=== PATIENT | female | born 1995 | race Caucasian/White ===

== ENCOUNTER → 2017-10-06 16:57 | Outpatient (CLI) | payer OTHER, SELFPAY ==
[2017-10-06 19:17] LABS: Chlamydia Trachomatis by PCR POSITIVE (Negative); Neisserai gonorrhoeae by PCR Negative (Negative); Probe Check PASS
[2017-10-11 09:20] LABS: HPV Reflexed? NOT INDICATED
== END ==
PROVIDERS: Visit Provider Nurse Practitioner Women's Health
DX: Z34.91 Encounter for supervision of normal pregnancy, unspecified, first trimester (principal); Z12.4 Encounter for screening for malignant neoplasm of cervix
CPT/HCPCS: 87086; 87491; 87591; 88175; G0145

== ENCOUNTER → 2017-11-02 14:20 | Outpatient (CLI) | payer OTHER, SELFPAY ==
--- NOTE | 2017-11-02 14:20 | DT_ITS ---
This patient was seen during an EMR downtime October 31, 2017 - November 07, 2017. This patient may have a combination of paper and electronic documentation or all paper documentation. All documentation is viewable within the e-chart portion of [facility] for each patient visit.
[2017-11-04 13:56] LABS: Chlamydia Trachomatis by PCR Negative (Negative); Neisserai gonorrhoeae by PCR Negative (Negative); Probe Check PASS; Sample Adequacy Control PASS; Specimen Processing Control PASS
[2017-11-06 13:34] LABS: Rapid Plasmin Reagin (RPR) NONREACTIVE (NONREACTIVE)
[2017-11-07 10:49] LABS: Absolute Lymphocyte Count 1.85 X10^3/ul (0.83-4.51); Absolute Neutrophil Count 6.3 X10^3/uL (2.0-7.7); Basophil% 0.3 % (0-1); Eosinophils% 1.3 % (0-5); Hematocrit 35.9 % (37-47); Hemoglobin 12.4 g/dl (12.0-15.0); Lymphocyte # 1.85 X10^3/ul (4.0); Lymphocyte % 20.7 % (19-41); Mean Corp Hgb Conc 34.5 g/gl (32-36); Mean Corpuscular Volume 86.9 fL (81-99); Mean Platelet Vol. 11.3 fl (6.2-12.0); Monocyte% 6.9 % (0-10); Neutrophil % 70.7 % (47-70); POSITIVE COUNT NO; POSITIVE DIFFERENTIAL NO; POSITIVE MORPHOLOGY NO; Platelet Count 251 K/mm3 (150-450); RBC Distribution Width CV 12.2 % (11.6-14.6); Red Blood Count 4.13 M/mm3 (4.2-5.4); White Blood Count 8.9 K/mm3 (4.4-11.0)
[2017-11-07 12:15] LABS: HIV - WCH Nonreactive (Nonreactive); Rubella IgG > 500.0 IU/mL
[2017-11-11 07:09] LABS: HEPATITIS B SURFACE AG Negative (Negative)
== END ==
PROVIDERS: Nurse Practitioner Women's Health; Visit Provider Obstetrics & Gynecology
DX: Z34.91 Encounter for supervision of normal pregnancy, unspecified, first trimester (principal)
CPT/HCPCS: 85025; 86592; 86703; 86762; 86900; 87340; 87491; 87591

== ENCOUNTER → 2017-11-29 14:00 | Outpatient (CLI) | payer OTHER, SELFPAY | LOC: LAB 14:02 | PROVIDERS: Visit Provider Obstetrics & Gynecology | DX: Z34.90 Encounter for supervision of normal pregnancy, unspecified, unspecified trimester (principal) | CPT/HCPCS: 36415; 86850 ==

== ENCOUNTER → 2017-12-28 12:12 | Outpatient (CLI) | payer OTHER, SELFPAY ==
--- NOTE | 2017-12-28 12:15 | US_ITS ---
STUDY: SECOND AND THIRD TRIMESTER OBSTETRICAL ULTRASOUND REASON FOR EXAM: Female, 22 years old. Anatomy LMP: TECHNIQUE: Transabdominal PRIOR ULTRASOUND: None. FINDINGS: There is a single intrauterine fetus. The fetus is in a cephalic presentation. There is demonstrated cardiac activity with a heart rate of 136 bpm. There is a normal amniotic fluid volume. The largest amniotic fluid pocket measures 4.7 cm. The placenta is posterior in location and is not low lying. There are Grade 0 placental changes. The cervix measures 4.5 cm in length. The bilateral adnexal regions are normal. BIOMETRY: BPD: 45mm: 19 weeks, 5 days HC: 179mm: 20 weeks, 3 days AC: 165mm: 21 weeks, 4 days FL: 35mm: 21 weeks, 1 days CI: 71 FL/BPD: 78 FL/HC: FL/AC: 21 HC/AC: 1.08 age by current US: 20 weeks, 5 days. CONNIE by current US: .. Estimated weight: 402 grams, +/- 14 grams, 88 %. Age by LMP: 20 weeks, 2 days. CONNIE by LMP: ..18. ANATOMY: Gender: Female Cranium: Normal lateral ventricles. Normal choroid plexus. Normal cerebellum. Normal cisterna magna. Normal face, nose and lips. Chest: Normal 4-chamber heart. Abdomen/Pelvis: Normal diaphragm. Normal stomach. Normal abdominal wall. Normal cord insertion. Normal 3 vessel cord. Normal right kidney. Minimal dilation of the left renal pelvis. Normal bladder. Spine: Normal cervical spine. Normal thoracic spine. Normal lumbar spine. Normal sacrum. Extremities: Normal bilateral upper extremities. Normal bilateral lower extremities. US/OB Anatomy Scan IMPRESSION: There is a single live intrauterine with a heart rate of 136 bpm. age by current US: 20 weeks, 5 days. CONNIE by current US: 05.12.18. Unremarkable anatomic survey. Electronically Signed: Nikita Mcallister MD at 18:13 EDT , Service support ,
== END ==
PROVIDERS: Visit Provider Nurse Practitioner Women's Health
DX: Z34.91 Encounter for supervision of normal pregnancy, unspecified, first trimester (principal)
CPT/HCPCS: 76805

== ENCOUNTER → 2018-02-21 09:00 | Outpatient (CLI) | payer OTHER, SELFPAY ==
[2018-02-21 10:54] LABS: Absolute Lymphocyte Count 1.43 X10^3/ul (0.83-4.51); Absolute Neutrophil Count 5.4 X10^3/uL (2.0-7.7); Basophil# 0.02 X10^3/uL; Basophil% 0.3 % (0-1); Eosinophil# 0.14 X10^3/uL; Eosinophils% 1.8 % (0-5); Hematocrit 29.8 % (37-47); Hemoglobin 10.1 g/dl (12.0-15.0); Lymphocyte # 1.43 X10^3/ul (4.0); Lymphocyte % 18.9 % (19-41); Mean Corp Hgb Conc 33.9 g/gl (32-36); Mean Corpuscular Hgb 30.9 pg (27.0-32.0); Mean Corpuscular Volume 91.1 fL (81-99); Mean Platelet Vol. 10.9 fl (6.2-12.0); Monocyte# 0.54 X10^3/uL; Monocyte% 7.1 % (0-10); Neutrophil # 5.42 X10^3/uL (2.7-7.7); Neutrophil % 71.5 % (47-70); Platelet Count 186 K/mm3 (150-450); RBC Distribution Width CV 13.4 % (11.6-14.6); RBC Distribution Width SD 44.3 fl (35.1-43.9); Red Blood Count 3.27 M/mm3 (4.2-5.4); White Blood Count 7.6 K/mm3 (4.4-11.0)
[2018-02-21 10:58] LABS: POSITIVE COUNT NO; POSITIVE DIFFERENTIAL NO; POSITIVE MORPHOLOGY NO
[2018-02-21 11:19] LABS: Glucose Challenge Gest 1H 50g 121 mg/dL (70-140)
== END ==
LOC: LAB 09:03
PROVIDERS: Referring Provider Nurse Practitioner Women's Health; Visit Provider Nurse Practitioner Women's Health
DX: Z34.91 Encounter for supervision of normal pregnancy, unspecified, first trimester (principal)
CPT/HCPCS: 36415; 82950; 85025

== ENCOUNTER → 2018-04-18 08:53 | Outpatient (CLI) | payer OTHER, SELFPAY ==
[2018-04-18 08:21] VITALS: BMI 28.5
[2018-04-18 09:33] LABS: Absolute Neutrophil Count 5.1 X10^3/uL (2.0-7.7); Basophil# 0.02 X10^3/uL; Basophil% 0.3 % (0-1); Eosinophil# 0.07 X10^3/uL; Eosinophils% 0.9 % (0-5); Hematocrit 31.7 % (37-47); Hemoglobin 10.6 g/dl (12.0-15.0); Lymphocyte % 20.3 % (19-41); Mean Corp Hgb Conc 33.4 g/gl (32-36); Mean Corpuscular Hgb 30.7 pg (27.0-32.0); Mean Corpuscular Volume 91.9 fL (81-99); Mean Platelet Vol. 10.8 fl (6.2-12.0); Monocyte# 1.08 X10^3/uL; Monocyte% 13.7 % (0-10); Neutrophil # 5.07 X10^3/uL (2.7-7.7); Neutrophil % 64.4 % (47-70); Platelet Count 159 K/mm3 (150-450); RBC Distribution Width CV 13.6 % (11.6-14.6); RBC Distribution Width SD 44.8 fl (35.1-43.9); Red Blood Count 3.45 M/mm3 (4.2-5.4); White Blood Count 7.9 K/mm3 (4.4-11.0)
[2018-04-18 09:38] LABS: POSITIVE COUNT NO; POSITIVE DIFFERENTIAL NO; POSITIVE MORPHOLOGY NO
[2018-04-19 02:02] LABS: Chlamydia Trachomatis by PCR Negative (Negative); Neisserai gonorrhoeae by PCR Negative (Negative); Probe Check PASS; Sample Adequacy Control PASS; Specimen Processing Control PASS
== END ==
LOC: PAVLAB 08:55
PROVIDERS: Visit Provider Nurse Practitioner Women's Health
DX: O99.012 Anemia complicating pregnancy, second trimester (principal); Z3A.00 Weeks of gestation of pregnancy not specified
CPT/HCPCS: 36415; 85025; 87081; 87491; 87591

== ENCOUNTER → 2018-04-26 16:39 | Outpatient (CLI) | payer OTHER, SELFPAY ==
[2018-04-26 12:17] VITALS: BMI 28.8
[2018-04-26 20:28] LABS: Chlamydia Trachomatis by PCR Negative (Negative); Neisserai gonorrhoeae by PCR Negative (Negative); Probe Check PASS; Sample Adequacy Control PASS; Specimen Processing Control PASS
--- OUTSIDE RECORDS SUMMARY | 2018-06-22 02:42 | XMS RPT_ITS ---
:1995 Author Organization OHIP Support Name Relationship Address Phone [facility] Unavailable [address] + [address], [place] Unavailable [address] + [address] [place] [id number] [facility] Unavailable [address] + [address], [place] Unavailable [address] + [address] [place] [address] [facility] Unavailable [address] + [address], [place] Unavailable [address] + [address] [place] [address] [facility] Unavailable [address] + [address], [place] Unavailable [address] + [address] [place] [address] [facility] Unavailable [address] + [address] [place] Unavailable [address] + [address] [place] [address] [facility] Unavailable [address] + [address], [place] Unavailable [address] + [address] [place] [address] [facility] Unavailable [address] + [address], [place] Unavailable [address] + [address] [place] [address] [facility] Unavailable [address] + [facility] [address] [place], [place] Unavailable [address] + [address] [place] [address] [facility] Unavailable [address] + [place] [address] [place], [place] Unavailable [address] + [address] [place] [address] [facility] Unavailable [address] + [place] [id number] [place], [place] Unavailable [address] + [address] [place] [address] [facility] Unavailable [address] + [address], [place] Unavailable [address] + [address] [place] [address] [facility] Unavailable [address] + [address], [place] Unavailable [address] + [address] [place] [address] [facility] Unavailable [address] + [address], [place] Unavailable [address] + [address] [place] [address] [facility] Unavailable [address] + [address], [place] Unavailable [address] + [place] [address] [facility] Unavailable [address] + [address], [place] Unavailable [address] + [place] [address] [facility] Unavailable [address] + [address], [place] Unavailable [address] + [place] [address] [facility] Unavailable [address] + [address], [place] Unavailable [address] + [place] [address] [facility] Unavailable [address] + [place] [place], [place] Unavailable [address] + [place] [address] [facility] Unavailable [address] + [place] [place], [place] Unavailable [address] + [place] [address] [facility] Unavailable [address] + [place] [place], [place] Unavailable [address] + [place] [address] [facility] Unavailable [address] + [address], [place] Unavailable [address] + [place] [address] [facility] Unavailable [address] + [address], [place] Unavailable Unavailable + [place] [address] [facility] Unavailable X + [address], [place] Unavailable . + [place] [address] Care Team Providers Name Role Phone Indiana Buck Attending Unavailable Primay Care Physicia, No Referring Unavailable MarcanthonyIndiana Attending Unavailable Primay Care Physicia, No Referring Unavailable Erum, Elizabet Attending Unavailable Primay Care Physicia, No Referring Unavailable Primay Care Physicia, No Primary Care Unavailable Erum, Elizabet Attending Unavailable Primay Care Physicia, No Primary Care Unavailable [place], Elizabet Referring Unavailable Indiana Buck Attending Unavailable Indiana Buck Referring Unavailable Primay Care Physicia, No Primary Care Unavailable Indiana Buck Admitting Unavailable MarcanthIndiana bobby Admitting Unavailable AbdonanthIndiana bobby Attending Unavailable Indiana Buck Referring Unavailable Primay Care Physicia, No Primary Care Unavailable Indiana Buck Consulting Unavailable Indiana Buck Attending Unavailable Primay Care Physicia, No Primary Care Unavailable [place], Elizabet Attending Unavailable Primay Care Physicia, No Referring Unavailable Primay Care Physicia, No Primary Care Unavailable Marcanthony, [place] Attending Unavailable Primay Care Physicia, No Referring Unavailable Primay Care Physicia, No Primary Care Unavailable Marcanthony, [place] Attending Unavailable Marcanthony, [place] Referring Unavailable Primay Care Physicia, No Primary Care Unavailable Erum, Elizabet Attending Unavailable Primay Care Physicia, No Referring Unavailable Primay Care Physicia, No Primary Care Unavailable Erum, Elizabet Attending Unavailable Primay Care Physicia, No Primary Care Unavailable Marcanthony, [place] Attending Unavailable Primay Care Physicia, No Referring Unavailable Primay Care Physicia, No Primary Care Unavailable Erum, Elizabet Attending Unavailable Primay Care Physicia, No Referring Unavailable [place], Elizabet Attending Unavailable [place], Elizabet Referring Unavailable Primay Care Physicia, No Primary Care Unavailable Marcanthony, [place] Attending Unavailable Primay Care Physicia, No Referring Unavailable [place], Elizabet Attending Unavailable Primay Care Physicia, No Referring Unavailable Marcanthony, [place] Attending Unavailable Primay Care Physicia, No Referring Unavailable [place], Elizabet Attending Unavailable Primay Care Physicia, No Referring Unavailable [place], Elizabet Attending Unavailable Primay Care Physicia, No Primary Care Unavailable Marcanthony, [place] Attending Unavailable Primay Care Physicia, No Referring Unavailable Marcanthony, [place] Attending Unavailable Primay Care Physicia, No Primary Care Unavailable Marcanthony, [place] Referring Unavailable Marcanthony, [place] Attending Unavailable Primay Care Physicia, No Referring Unavailable PROBLEMS PROBLEMS DATE TYPE CONDITION / CODE ATTENDING STATUS SOURCE 05/15/2018 Unknown O98.813 - Other Marcanthony, Active [place] maternal [facility] infectious and Hospital parasitic diseases Repository complicating , third trimester / O98.813(ICD-10) 05/15/2018 Unknown Z34.80 - Encounter Marcanthony, Active [place] for supervision of [facility] normal Hospital , Repository unspecified trimester / Z34.80(ICD-10) 05/15/2018 Unknown Z3A.40 - 40 weeks Marcanthony, Active [place] gestation of [facility] / Hospital Z3A.40(ICD-10) Repository 05/02/2018 Unknown Z34.81 - Encounter Marcanthony, Active [place] for supervision of [facility] normal Hospital , first Repository trimester / Z34.81(ICD-10) 05/02/2018 Unknown Z3A.38 - 38 weeks Marcanthony, Active [place] gestation of [facility] / Hospital Z3A.38(ICD-10) Repository 04/18/2018 Unknown Z34.90 - Encounter [place], Elizabet Active [place] for supervision of [facility] normal , Hospital unspecified, Repository unspecified trimester / Z34.90(ICD-10) 04/18/2018 Unknown O99.012 - Anemia [place], Elizabet Active [place] complicating Community , second Hospital trimester / Repository O99.012(ICD-10) 04/18/2018 Unknown Z3A.36 - 36 weeks Erum, Elizabet Active [place] gestation of [facility] / Hospital Z3A.36(ICD-10) Repository 04/04/2018 Unknown A74.9 - Chlamydial Marcanthony, Active [place] infection, [facility] unspecified / Hospital A74.9(ICD-10) Repository 04/04/2018 Unknown Z3A.34 - 34 weeks Marcanthony, Active [place] gestation of [facility] / Hospital Z3A.34(ICD-10) Repository 03/21/2018 Unknown Z23 - Encounter [place], Elizabet Active [place] for immunization / [facility] Z23(ICD-10) Hospital Repository 03/07/2018 Unknown O98.812 - Other Marcanthony, Active [place] maternal [facility] infectious and Hospital parasitic diseases Repository complicating , second trimester / O98.812(ICD-10) 03/07/2018 Unknown Z3A.30 - 30 weeks Marcanthony, Active [place] gestation of [facility] / Hospital Z3A.30(ICD-10) Repository 02/21/2018 Unknown Z34.91 - Encounter [place], Elizabet Active [place] for supervision of [facility] normal , Hospital unspecified, first Repository trimester / Z34.91(ICD-10) 02/21/2018 Unknown Z3A.28 - 28 weeks [place], Elizabet Active [place] gestation of [facility] / Hospital Z3A.28(ICD-10) Repository 02/21/2018 Unknown O26.86 - Pruritic Erum, Elizabet Active [place] urticarial papules Community and plaques of Hospital (PUPPP) Repository / O26.86(ICD-10) 12/26/2017 Unknown Z3A.20 - 20 weeks Erum, Elizabet Active [place] gestation of [facility] / Hospital Z3A.20(ICD-10) Repository 10/07/2017 Unknown Z12.4 - Encounter Elizabet Danielson Active [place] for screening for [facility] malignant neoplasm Hospital of cervix / Repository Z12.4(ICD-10) PROCEDURES PROCEDURES No Procedure Records FoundRESULTS RESULTS OPERATIVE REPORT Observed: 05/16/2018 Status: F Source: [place] 7:43 PM [facility] REPOSITORY [facility] Medical Records Department [address] [facility] [place] [address] Operative Report 05/16/181940 MR#: [id number] Acct: [id number] Name: KATHI MCFARLAND Rep #: [id number] : 1995 23 From: Indiana Buck MD PCP: Care Physician, No Primary Status: ADM IN Location: [id number] - Problem List (1) Active labor Status: Acute (2) Anemia affecting Status: Acute Qualifiers: (3) Supervision of normal , antepartum Status: Acute Qualifiers: Comment: PRR G 06/30 CONNIE: 05/15/18 girl PC; Antionette. Spouse Colin. (4) Status: Acute Qualifiers: Comment: declined genetic, carrier, and ntd screening. anatomy scan normal. Vaginal Delivery Maternal Presentation: Active Labor Amniotic Membrane Rupture Type: Spontaneous at home Amniotic Fluid Description: Clear Final CONNIE: 05/15/18 Gestational age: 40 Weeks and 1 Days Date of Procedure: 05/16/18 Pre-Operative Diagnosis: ial Post-Operative Diagnosis: same Surgery/ Procedure Performed: Spontaneous Vaginal Delivery Type of Anesthesia: Epidural Description of Procedure: Patient began pushing and delivered the head in the DM presentation. The head was delivered atraumatically . The anterior and posterior shoulders delivered without complication followed by the rest of the infant and the was placed on the maternal abdomen. Delayed cord clamping was employed for approximately 60 seconds. Cord was clamped and cut and gentle traction was applied to the cord and the placenta delivered spontaneously immediately following it was noted to be intact with three-vessel cord. The perineum and vagina were inspected and noted to have a small first-degree perineal laceration that was repaired in the usual fashion with 3-0 Vicryl repeat. EBL was 200 cc. Patient and infant tolerated delivery well. Presentation: DM Placental Delivery Description: Spontaneous Placenta Disposition: [facility] Cord Vessel Description: 3 Vessels Cord Entanglement: None Episiotomy Description: None Laceration: Perineal Extension/lac, 1st degree Medications given after delivery: IV Pitocin Complications: None 05/16/181942 <Electronically signed by Indiana Buck MD> Date Indiana Buck MD CC: No Primary Care Physician; Indiana Buck MD Signed HISTORY AND PHYSICAL Observed: 05/16/2018 Status: F Source: [place] EXAM 5:54 PM [facility] REPOSITORY [facility] Medical Records Department [address] [place] [address] History and Physical 05/16/18 1748 MR#: [id number] Acct: [id number] Name: KATHI MCFARLAND Rep #: [id number] : 1995 23 From: Indiana Buck MD PCP: Care Physician, No Primary Status: ADM IN Y Location: [id number] - Problem List (1) Active labor Status: Acute (2) Anemia affecting Status: Acute Qualifiers: (3) Supervision of normal , antepartum Status: Acute Qualifiers: Comment: PRR Rachelle 06/30 CONNIE: 05/15/18 girl PC; Antionette. Spouse Colin. (4) Status: Acute Qualifiers: Comment: declined genetic, carrier, and ntd screening. anatomy scan normal. History Date of Admission: 05/16/18 Final CONNIE: 05/15/18 Gestational age: 40 Weeks and 1 Days History of this : This is a 23 year-old, , at 40 weeks gestational age presents IAL with SROM clear fluid Allergies No Known Allergies Allergy (Verified 05/16/18 08:55) Home Medications: Home Medications Ferrous Sulfate 325 mg PO DAILY 07/29/14 Vits [Prenatabs FA ] 1 tab PO DAILY 07/29/14 Smoking Status: Never smoker Alcohol: None Number of Fetus(es): 1 Heart Tracins moderate variability reactive no decels cat I tracing TOCO Analysis: q 5-8 History Past Pregnancies: previous term Labs: Mom's Labs AND Results WBC 10.9 RBC 3.66 L Hgb 11.6 L Hct 33.3 L MCV 91.0 Course Did the patient receive Yes care? Labs Blood Type: B Current Obstetrical History Gestational Diabetes No Incompetent Cervix No Infertility No IUGR No Macrosomia No Hypertension/Pre-eclampsia No Placenta Previa/Abruption No PTL/PROM No Uterine anomaly No Oligohydramnios No Polyhydramnios No Multiple gestation No Past Medical History Asthma No Diabetes No Hypertension No Heart disease No Mitral valve prolapse No Neurologic/Seizure disorder/ No Migraines Kidney disease No Liver disease No Varicosities No Clotting disorders/Hx of DVT No Thyroid Dysfunction No Other medical diseases No Psychiatric disorders No Major trauma No Abnormal PAP smear No Sleep apnea No Mammogram in the last 2 years No Social History Marital Status: Alleged father Colin Mcfarland Hx Smoking No Smoking Status Never smoker Expected Infant Delivery Method: Spontaneous Vaginal Review of Systems Constitutional: Denies: Fever, Malaise Eyes: Denies: Blurred vision, Vision Change HEENT: Denies: Head Aches, Visual Changes Cardiovascular: Denies: Chest Pain, Palpitations Respiratory: Denies: Cough, Shortness of Breath, Wheezing Gastrointestinal: Denies: Abdominal Pain, Diarrhea, Nausea, Vomiting Genitourinary: Denies: Dysuria, Hematuria Musculoskeletal: Denies: Joint Pain, Muscle pain Skin: Denies: Lesions, Rash Neurological: Denies: Blurred vision, Focal weakness, Headaches Psychiatric: Denies: Anxiety, Depression Endocrine: Denies: Heat/ Cold Intolerance Hematologic/ Lymphatic: Denies: Easy Bruising, Easy Bleeding Physical Exam General: Alert, Cooperative, No apparent distress HEENT: Atraumatic, Normocephalic. Negative for: Thyromegaly, Lymphadenopathy Cardiovascular: Regular rate Lungs: Normal air movement Abdomen: Soft, Non Tender, Gravid Neurological: Deep Tendon Reflexes 2+/4 and Symmetrical, Neuro grossly intact. Negative for: Clonus VARIETY SAW OPERATOR: Normal external genitalia. Negative for: Vulvar lesions Estimated gestational size: Appropriate for gestational size Presentation: Cephalic Assessment/Plan All Active Problems (Last Reviewed 05/15/18 @ 08:47 by Nora Arias) Active labor (Acute) Anemia affecting (Acute) Supervision of normal , antepartum (Acute) (Acute) Chlamydia infection affecting (Acute) Encounter for supervision of normal in first trimester (Resolved) This is a 23 year-old, , at 40 weeks gestational age presents IAL Patient presents IAL, plan expectant management for , pitocin PRN Pain management: plans epidural. GBS negative. Management of any complications: none I have reviewed the [facility] and made any clinically relevant updates. 05/16/181753 <Electronically signed by Indiana Buck MD> Date Indiana Buck MD Cosigner Signature: Date (if applicable) CC: No Primary Care Physician; Indiana Buck MD Signed CBC-COMPLETE BLOOD CNT Collected: 05/16/2018 Status: F Source: [place] NO DIFF 9:00 AM [facility] REPOSITORY TYPE CODE TESTS RESULT OUT OF RANGE REFERENCE UNITS LAB L100.1000 4.4-11.0 K/mm3 Normal WBC 10.9 LAB L100.1200 4.2-5.4 M/mm3 Low RBC 3.66 LAB L100.1300 12.0-15.0 g/dl Low HGB 11.6 LAB L100.1400 37-47 % Low HCT 33.3 LAB L100.1500 81-99 fL Normal MCV 91.0 LAB L100.1600 27.0-32.0 pg Normal MCH 31.7 LAB L100.1700 32-36 g/gl Normal MCHC 34.8 LAB L100.1810 11.6-14.6 % Normal RDW CV 13.3 LAB L100.1820 35.1-43.9 fl Normal RDW SD 42.8 LAB L100.1900 150-450 K/mm3 Normal PLT 175 LAB L100.2000 6.2-12.0 fl Normal MPV 11.4 Performed By: #### L100.0500 #### [facility] [address] [place], [address] TYPE AND SCREEN Collected: 05/16/2018 Status: F Source: [place] 9:00 AM [facility] REPOSITORY Order Comment: Reason for Type AND Screen/Red Cells: ROUTINE TYPE CODE TESTS RESULT OUT OF RANGE REFERENCE UNITS LAB B10.0800 B Normal BLOOD TYPE GEL POSITIVE LAB B100.4000 Normal Antibody NEGATIVE Screen Performed By: #### B101.7450 #### [facility] [address] [place], [address] (ROM) RUPTURE OF Collected: 05/16/2018 Status: F Source: [place] [facility] 8:10 AM [facility] REPOSITORY TYPE CODE TESTS RESULT OUT OF REFERENCE UNITS RANGE LAB L205.1310 Negative High ROM POSITIVE Result Comment: Amniotic fluid present indicates rupture of Membranes. RESULTS CALLED TO JAHAIRA MEDLEY 05/16/18 0824 Gardenia Mariee. REPORT READ BACK BY SAME . Performed By: #### L205.1000 #### [facility] [address] [place], [address] DRAFTSPERSON OFFICE VISIT Observed: 05/15/2018 Status: F Source: [place] REPORT 9:36 AM [facility] REPOSITORY [facility] [address] [place] [address] OFFICE VISIT Date of Service: 05/15/18 MR#: [id number] Acct: [id number] Name: KATHI MCFARLAND Rep #: [id number] : 1995 Provider: Indiana Buck MD Age/Sex: 23/F Location: [facility] Status: Signed Intake Vital Signs05/15/18 Height 5 ft 6 in 05/15/18 Weight: 188 lb 05/15/18 Body Mass Index (BMI) 30.3 05/15/18 Blood Pressure 98/64 Intake Visit Reasons: 40 weeks Chief Complaint: est ob Gem Cutter Required: No Is patient in pain?: No Allergies No Known Allergies Allergy (Verified 05/15/18 08:47) Medications Ferrous Sulfate 325 mg PO DAILY 07/29/14 [History Confirmed 05/15/18] Vits [Prenatabs FA ] 1 tab PO DAILY 07/29/14 [History Confirmed 05/15/18] Last Menstral Period: 08/08/17 Zika: Zika virus screening: Negative : No PFSH PFSH Family History Grandmother Diabetes Social History Smoking Status: Never smoker alcohol intake: never substance use type: does not use caffeine: Yes what type of physical activity do you participate in: walking frequency: 1-2 times per week seatbelt use: always do you feel safe at home: Yes additional social history: - Colin- Diesel Maintenance Technician 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 DatName GA/WeeksOutcome Route [facility] LocaProviderFOB e ht en ia tn 07/31/14Averie 42 live birNSVD 8 lbs [facility] Dr. Petersen - ful oz cos l term HPI 40 weeks: Details: KATHI MCFARLAND is a 23 year old who presents for routine OB visit. OB Visit CONNIE Calculator Estimated Delivery Date 05/15/18 Based on LMP (certain) 08/08/17 Current WG 40w 0d Number 1 Expected Delivery Route/Plan Specific Issue/Plans flu vaccine: given minichart given: yes tdap vaccine: given rhogam: NA LARC form signed: declines labor support person: Colin pain management: epidural cut cord/dad catch: no : yes PP control planned: considering IUD special requests: Initial Weight: 170 lb Date Weight BP Urine PFHR FuHt Pres MCTX DilatioFetal SVisit NProvideComment rot ov n t ote r s EGA Ef Gluco faced se 10/06/1170 lb 112/72 8 4 oz (+ 8w1 lb 4 3d oz) Visit Notes Visit Date: 05/15/18 no vb lof good fm no regular ctx Indiana Buck MD on 05/15/18 Visit Date: 05/09/18 no vb lof good fm n oregular ctx Indiana Buck MD on 05/09/18 Visit Date: 05/02/18 no vb lof good fm no regular ctx Indiana Buck MD on 05/02/18 Visit Date: 04/26/18 no vb lof good fm n oregular ctx. Indiana Buck MD on 04/26/18 Visit Date: 04/18/18 Doing well. No VB, LOF. DARIANA MccauleyC on 04/18/18 Visit Date: 04/04/18 no vb lof good fm no regular ctx Indiana Buck MD on 04/04/18 Visit Date: 03/21/18 Doing well. No VB, LOF. DARIANA MccauleyC on 03/21/18 Visit Date: 03/07/18 no vb lof good fm no regular ctx. Indiana Buck MD on 03/07/18 Visit Date: 02/21/18 Rash noted lower abdomen, upper thighs X 3 days. Itches. NO VB, LOF. Good FM DENNY Mccauley on 02/21/18 Visit Date: 01/23/18 no vb lof cramping diong well Indiana Buck MD on 01/23/18 Visit Date: 12/26/17 No VB, LOF. Doing well DENNY Mccauley on 12/26/17 Visit Date: 11/29/17 no vb cramping Indiana Buck MD on 11/29/17 Visit Date: 10/06/17 No visit notes to display Diagnostics Diagnostics Labs Hct 31.7 % (37-47) L 04/18/18 Hgb 10.6 g/dl (12.0-15.0) L 04/18/18 Obstetrics Ultrasound 12/28/17 Chlam trachomat DNA PCR Negative (Negative) 04/26/18 N.gonorrhoeae DNA (PCR) Negative (Negative) 04/26/18 Glucose 1 Hr 50 gm 121 mg/dL (70-140) 02/21/18 Details: HIV: Urine Culture: Sequential Screen: NIPT Screen: Results [id number] Office Urine Glucose Negative Last Edit by Nora Arias on 05/15/18 08:51 Office Urine Protein Negative Last Edit by Nora Arias on 05/15/18 08:51 Assessment AND Plan Problems 1. Chlamydia infection affecting in third trimester O98.813 Negative repeat 11/02/17:rpt at 36 wks- 2. Supervision of other normal , antepartum Z34.80 PRR G 06/30 CONNIE: 05/15/18 girl PC; Antionette. Spouse Colin. 3. 40 weeks gestation of Z3A.40 declined genetic, carrier, and ntd screening. anatomy scan normal. Plan movement and labor precautions reviewed. ACOG trimester education reviewed and updated. see problem list details for updated plan management information and see below for orders placed at this visit. GA appropriate handout given. Orders Orders: Coding Level of Care Code OB Routine Diagnoses Chlamydia infection affecting in third trimester O98.813 Trimester: third trimester Supervision of other normal , antepartum Z34.80 Normal : other normal 40 weeks gestation of Z3A.40 Weeks of gestation: 40 weeks 05/15/18 0936 <Electronically signed by Indiana Buck MD> Date Indiana Buck MD Cosign Signature: Date (if applicable) CC: DRAFTSPERSON OFFICE VISIT Observed: 05/09/2018 Status: F Source: [place] REPORT 10:13 AM [facility] REPOSITORY [facility] [address] [place] [address]. [address] [place] [address] OFFICE VISIT Date of Service: 05/09/18 MR#: [id number] Acct: [id number] Name: KATHI MCFARLAND Rep #: [id number] : 1995 Provider: Indiana Buck MD Age/Sex: 23/F Location: [facility] Status: Signed Intake Vital Signs05/09/18 Height 5 ft 6 in 05/09/18 Weight: 191 lb 05/09/18 Body Mass Index (BMI) 30.8 05/09/18 Blood Pressure 104/66 05/09/18 Body Mass Index (BMI) 29.0 Intake Visit Reasons: 39 weeks Chief Complaint: est ob Gem Cutter Required: No Is patient in pain?: No Allergies No Known Allergies Allergy (Verified 05/09/18 08:41) Medications Ferrous Sulfate 325 mg PO DAILY 07/29/14 [History Confirmed 05/09/18] Vits [Prenatabs FA ] 1 tab PO DAILY 07/29/14 [History Confirmed 05/09/18] Last Menstral Period: 08/08/17 Zika: Zika virus screening: Negative : No PFSH PFSH Family History Grandmother Diabetes Social History Smoking Status: Never smoker alcohol intake: never substance use type: does not use caffeine: Yes what type of physical activity do you participate in: walking frequency: 1-2 times per week seatbelt use: always do you feel safe at home: Yes additional social history: - Colin- Diesel Maintenance Technician 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 DatName GA/WeeksOutcome Route [facility] LocaProviderFOB e ht en mn tn 07/31/14Averie 42 live birNSVD 8 lbs [address] [facility] Dr. Petersen - ful oz cos l term HPI 39 weeks: Details: KATHI MCFARLAND is a 23 year old who presents for routine OB visit. OB Visit CONNIE Calculator Estimated Delivery Date 05/15/18 Based on LMP (certain) 08/08/17 Current WG 39w 1d Number 1 Expected Delivery Route/Plan Specific Issue/Plans flu vaccine: given minichart given: yes tdap vaccine: given rhogam: NA LARC form signed: declines labor support person: Colin pain management: epidural cut cord/dad catch: no : yes PP control planned: considering IUD special requests: Initial Weight: 170 lb Date Weight BP Urine PrFHR FuHt Pres MoCTX DilationFetal StVisit NoProviderComments E ot v te GA G Effac lucose ed Visit Notes Visit Date: 05/09/18 no vb lof good fm n oregular ctx Indiana Buck MD on 05/09/18 Visit Date: 05/02/18 no vb lof good fm no regular ctx Indiana Buck MD on 05/02/18 Visit Date: 04/26/18 no vb lof good fm n oregular ctx. Indiana Buck MD on 04/26/18 Visit Date: 04/18/18 Doing well. No VB, LOF. DENNY Mccauley on 04/18/18 Visit Date: 04/04/18 no vb lof good fm no regular ctx Indiana Buck MD on 04/04/18 Visit Date: 03/21/18 Doing well. No VB, LOF. DENNY Mccauley on 03/21/18 Visit Date: 03/07/18 no vb lof good fm no regular ctx. Indiana Buck MD on 03/07/18 Visit Date: 02/21/18 Rash noted lower abdomen, upper thighs X 3 days. Itches. NO VB, LOF. Good FM DENNY Mccauley on 02/21/18 Visit Date: 01/23/18 no vb lof cramping diong well Indiana Buck MD on 01/23/18 Visit Date: 12/26/17 No VB, LOF. Doing well DENNY Mccauley on 12/26/17 Visit Date: 11/29/17 no vb cramping Indiana Buck MD on 11/29/17 Visit Date: 10/06/17 No visit notes to display ACOG First Trimester First Trimester: Desire for , Alcohol, Tobacco Cessation, Illicit/Recreational Drug/Substance Use, Intimate Partner Violence, Barriers to care, Unstable Housing, Communication Barriers, Environmental/Work Hazards, Anticipated Course of Care, Toxoplasmosis Precations, Use of Any medications, Sexual activity, Exercise, Dental Care, Sauna/Hot tub use, Seat Belt use, Childbirth classes/Hospital facilities, , Travel, Indications for US and Screening for Aneuploidy Second Trimester Second Trimester: Signs and Symptoms of Labor, Selecting a care provider, Reproductive Life Planning, Care Planning, Depression/Anxiety and Intimate Partner Violence; discussed Tobacco Cessation Third Trimester Third Trimester: Pain Management Plans, Labor support person(s), Immediate Larc and Movement Monitoring Diagnostics Diagnostics Labs Antibody Screen NEGATIVE 11/29/17 Hct 31.7 % (37-47) L 04/18/18 Hgb 10.6 g/dl (12.0-15.0) L 04/18/18 Obstetrics Ultrasound 12/28/17 Chlam trachomat DNA PCR Negative (Negative) 04/26/18 N.gonorrhoeae DNA (PCR) Negative (Negative) 04/26/18 Glucose 1 Hr 50 gm 121 mg/dL (70-140) 02/21/18 Details: HIV: Urine Culture: Sequential Screen: NIPT Screen: Results [id number] Office Urine Glucose Negative Last Edit by Nora Arias on 05/09/18 08:46 Office Urine Protein Trace Last Edit by Nora Arias on 05/09/18 08:46 Assessment AND Plan Problems 1. Chlamydia infection affecting in third trimester O98.813 Negative repeat 11/02/17:rpt at 36 wks- 2. Supervision of other normal , antepartum Z34.80 PRR G 06/30 CONNIE: 05/15/18 girl PC; Antionette. Spouse Colin. 3. 39 weeks gestation of Z3A.39 declined genetic, carrier, and ntd screening. anatomy scan normal. Plan movement and labor precautions reviewed. ACOG trimester education reviewed and updated. see problem list details for updated plan management information and see below for orders placed at this visit. [place] appropriate handout given. Orders Orders: Coding Level of Care Code OB Routine Diagnoses Chlamydia infection affecting in third trimester O98.813 Trimester: third trimester Supervision of other normal , antepartum Z34.80 Normal : other normal 39 weeks gestation of Z3A.39 Weeks of gestation: 39 weeks 05/09/18 1013 <Electronically signed by Indiana Buck MD> Date Indiana Buck MD Cosigner Signature: Date (if applicable) CC: DRAFTSPERSON OFFICE VISIT Observed: 05/02/2018 Status: F Source: [place] REPORT 9:20 AM [facility] [place] [place] [facility] [address] [place] [address] OFFICE VISIT Date of Service: 05/02/18 MR#: [id number] Acct: [id number] Name: KATHI MCFARLAND Rep #: [id number] : 1995 Provider: Indiana Buck MD Age/Sex: 23/F Location: [facility] Status: Signed Intake Vital Signs05/02/18 Height 5 ft 8 in 05/02/18 Weight: 191 lb 05/02/18 Body Mass Index (BMI) 29.0 05/02/18 Blood Pressure 90/54 L 05/02/18 Body Mass Index (BMI) 28.8 Intake Visit Reasons: 38 weeks Chief Complaint: est ob Gem Cutter Required: No Is patient in pain?: No Allergies No Known Allergies Allergy (Verified 05/02/18 08:48) Medications Ferrous Sulfate 325 mg PO DAILY 07/29/14 [History Confirmed 05/02/18] Vits [Prenatabs FA ] 1 tab PO DAILY 07/29/14 [History Confirmed 05/02/18] Last Menstral Period: 08/08/17 Zika: Zika virus screening: Negative : No PFSH PFSH Family History Grandmother Diabetes Social History Smoking Status: Never smoker alcohol intake: never substance use type: does not use caffeine: Yes what type of physical activity do you participate in: walking frequency: 1-2 times per week seatbelt use: always do you feel safe at home: Yes additional social history: - Colin- Diesel Maintenance Technician 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 DatName [place]/WeeksOutcome Route [facility] LocaProviderFOB e ht en ia tn 07/31/14Averie 42 live birNSVD 8 lbs [address] [facility] Dr. Nicola pretty - ful oz cos l term HPI 38 weeks: Details: KATHI MCFARLAND is a 23 year old who presents for routine OB visit. OB Visit CONNIE Calculator Estimated Delivery Date 05/15/18 Based on LMP (certain) 08/08/17 Current WG 38w 1d Number 1 Expected Delivery Route/Plan Specific Issue/Plans flu vaccine: given minichart given: yes tdap vaccine: given rhogam: NA LARC form signed: declines labor support person: Colin pain management: epidural cut cord/dad catch: no : yes PP control planned: considering IUD special requests: Initial Weight: 170 lb Date Weight BP Urine PrFHR FuHt Pres MoCTX DilationFetal StVisit NoProviderComments E ot v te GA G Effac lucose ed Visit Notes Visit Date: 05/02/18 no vb lof good fm no regular ctx Indiana Buck MD on 05/02/18 Visit Date: 04/26/18 no vb lof good fm n oregular ctx. Indiana Buck MD on 04/26/18 Visit Date: 04/18/18 Doing well. No VB, LOF. DENNY Mccauley on 04/18/18 Visit Date: 04/04/18 no vb lof good fm no regular ctx Indiana Buck MD on 04/04/18 Visit Date: 03/21/18 Doing well. No VB, LOF. DENNY Mccauley on 03/21/18 Visit Date: 03/07/18 no vb lof good fm no regular ctx. Indiana Buck MD on 03/07/18 Visit Date: 02/21/18 Rash noted lower abdomen, upper thighs X 3 days. Itches. NO VB, LOF. Good FM DENNY Mccauley on 02/21/18 Visit Date: 01/23/18 no vb lof cramping diong well Indiana Buck MD on 01/23/18 Visit Date: 12/26/17 No VB, LOF. Doing well DENNY Mccauley on 12/26/17 Visit Date: 11/29/17 no vb cramping Indiana Buck MD on 11/29/17 Visit Date: 10/06/17 No visit notes to display ACOG First Trimester First Trimester: Desire for , Alcohol, Tobacco Cessation, Illicit/Recreational Drug/Substance Use, Intimate Partner Violence, Barriers to care, Unstable Housing, Communication Barriers, Environmental/Work Hazards, Anticipated Course of Care, Toxoplasmosis Precations, Use of Any medications, Sexual activity, Exercise, Dental Care, Sauna/Hot tub use, Seat Belt use, Childbirth classes/Hospital facilities, , Travel, Indications for US and Screening for Aneuploidy Second Trimester Second Trimester: Signs and Symptoms of Labor, Selecting a care provider, Reproductive Life Planning, Care Planning, Depression/Anxiety and Intimate Partner Violence; discussed Tobacco Cessation Third Trimester Third Trimester: Pain Management Plans, Labor support person(s), Immediate Larc and Movement Monitoring Diagnostics Diagnostics Labs Antibody Screen NEGATIVE 11/29/17 Hct 31.7 % (37-47) L 04/18/18 Hgb 10.6 g/dl (12.0-15.0) L 04/18/18 Obstetrics Ultrasound 12/28/17 Chlam trachomat DNA PCR Negative (Negative) 04/26/18 N.gonorrhoeae DNA (PCR) Negative (Negative) 04/26/18 Glucose 1 Hr 50 gm 121 mg/dL (70-140) 02/21/18 Details: HIV: Urine Culture: Sequential Screen: NIPT Screen: Results [id number] Office Urine Glucose Negative Last Edit by Nora Arias on 05/02/18 08:54 Office Urine Protein Negative Last Edit by Nora Arias on 05/02/18 08:54 Assessment AND Plan Problems 1. Encounter for supervision of other normal in first trimester Z34.81 2. Chlamydia infection affecting in third trimester O98.813 Negative repeat 11/02/17:rpt at 36 wks- 3. Supervision of other normal , antepartum Z34.80 PRR G 06/30 CONNIE: 05/15/18 girl PC; Antionette. Spouse Colin. 4. 38 weeks gestation of Z3A.38 declined genetic, carrier, and ntd screening. anatomy scan normal. Plan ACOG trimester education reviewed and updated. see problem list details for updated plan management information and see below for orders placed at this visit. GA appropriate handout given. Orders Orders: Coding Level of Care Code OB Routine Diagnoses Encounter for supervision of other normal in first trimester Z34.81 Normal : other normal Chlamydia infection affecting in third trimester O98.813 Trimester: third trimester Supervision of other normal , antepartum Z34.80 Normal : other normal 38 weeks gestation of Z3A.38 Weeks of gestation: 38 weeks 05/02/18 0920 <Electronically signed by Indiana Buck MD> Date Indiana Buck MD Cosigner Signature: Date (if applicable) CC: DRAFTSPERSON OFFICE VISIT Observed: 04/26/2018 Status: F Source: [place] REPORT 12:51 PM [facility] [address] [place] [address] OFFICE VISIT Date of Service: 04/26/18 MR#: [id number] Acct: [id number] Name: KATHI MCFARLAND Rep #: [id number] : 1995 Provider: Indiana Buck MD Age/Sex: 23/F Location: [facility] Status: Signed Intake Vital Signs04/26/18 Height 5 ft 8 in Intake Visit Reasons: 38 WK OB Chief Complaint: est ob Gem Cutter Required: No Is patient in pain?: No Allergies No Known Allergies Allergy (Verified 04/26/18 12:16) Medications Ferrous Sulfate 325 mg PO DAILY 07/29/14 [History Confirmed 04/26/18] Vits [Prenatabs FA ] 1 tab PO DAILY 07/29/14 [History Confirmed 04/26/18] Last Menstral Period: 08/08/17 Zika: Zika virus screening: Negative : No PFSH PFSH Family History Grandmother Diabetes Social History Smoking Status: Never smoker alcohol intake: never substance use type: does not use caffeine: Yes what type of physical activity do you participate in: walking frequency: 1-2 times per week seatbelt use: always do you feel safe at home: Yes additional social history: - Colin- Diesel Maintenance Technician 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 DatName GA/WeeksOutcome Route [facility] NormangInelidiat Graciela LgAnesthesDel LocaProviderFOB e ht en ia tn 07/31/14Averie 41 live birNSVD 8 lbs [address] [facility] Dr. Petersen - ful oz cos l term HPI 38 WK OB : Details: KATHI MCFARLAND is a 23 year old who presents for routine OB visit. OB Visit CONNIE Calculator Estimated Delivery Date 05/15/18 Based on LMP (certain) 08/08/17 Current WG 37w 2d Number 1 Expected Delivery Route/Plan Specific Issue/Plans flu vaccine: given minichart given: yes tdap vaccine: given rhogam: NA LARC form signed: declines labor support person: Colin pain management: epidural cut cord/dad catch: no : yes PP control planned: considering IUD special requests: Initial Weight: 170 lb Date Weight BP Urine PrFHR FuHt Pres MoCTX DilationFetal StVisit NoProviderComments E ot v te GA G Effac lucose ed Visit Notes Visit Date: 04/26/18 no vb lof good fm n oregular ctx. Indiana Buck MD on 04/26/18 Visit Date: 04/18/18 Doing well. No VB, LOF. DENNY Mccauley on 04/18/18 Visit Date: 04/04/18 no vb lof good fm no regular ctx Indiana Buck MD on 04/04/18 Visit Date: 03/21/18 Doing well. No VB, LOF. DENNY Mccauley on 03/21/18 Visit Date: 03/07/18 no vb lof good fm no regular ctx. Indiana Buck MD on 03/07/18 Visit Date: 02/21/18 Rash noted lower abdomen, upper thighs X 3 days. Itches. NO VB, LOF. Good FM DENNY Mccauley on 02/21/18 Visit Date: 01/23/18 no vb lof cramping diong well Indiana Buck MD on 01/23/18 Visit Date: 12/26/17 No VB, LOF. Doing well DENNY Mccauley on 12/26/17 Visit Date: 11/29/17 no vb cramping Indiana Buck MD on 11/29/17 Visit Date: 10/06/17 No visit notes to display ACOG First Trimester First Trimester: Desire for , Alcohol, Tobacco Cessation, Illicit/Recreational Drug/Substance Use, Intimate Partner Violence, Barriers to care, Unstable Housing, Communication Barriers, Environmental/Work Hazards, Anticipated Course of Care, Toxoplasmosis Precations, Use of Any medications, Sexual activity, Exercise, Dental Care, Sauna/Hot tub use, Seat Belt use, Childbirth classes/Hospital facilities, , Travel, Indications for US and Screening for Aneuploidy Second Trimester Second Trimester: Signs and Symptoms of Labor, Selecting a care provider, Reproductive Life Planning, Care Planning, Depression/Anxiety and Intimate Partner Violence; discussed Tobacco Cessation Third Trimester Third Trimester: Pain Management Plans, Labor support person(s), Immediate Larc and Movement Monitoring Diagnostics Diagnostics Labs Blood Type B POSITIVE 11/02/17 Antibody Screen NEGATIVE 11/29/17 Hct 31.7 % (37-47) L 04/18/18 Hgb 10.6 g/dl (12.0-15.0) L 04/18/18 Obstetrics Ultrasound 12/28/17 Rubella IgG Antibody > 500.0 IU/mL 11/02/17 RPR NONREACTIVE (NONREACTIVE) 11/02/17 Hep Bs Antigen Negative (Negative) 11/02/17 Chlam trachomat DNA PCR Negative (Negative) 04/18/18 N.gonorrhoeae DNA (PCR) Negative (Negative) 04/18/18 Glucose 1 Hr 50 gm 121 mg/dL (70-140) 02/21/18 Details: HIV: Urine Culture: Sequential Screen: NIPT Screen: Assessment AND Plan Problems 1. Chlamydia infection affecting in third trimester O98.813 Negative repeat 11/02/17:rpt at 36 wks- 2. Supervision of other normal , antepartum Z34.80 PRR G 06/30 CONNIE: 05/15/18 girl PC; Antionette. Spouse Colin. 3. 37 weeks gestation of Z3A.37 declined genetic, carrier, and ntd screening. anatomy scan normal. 4. Encounter for supervision of other normal in first trimester Z34.81 Plan movement and labor precautions reviewed. ACOG trimester education reviewed and updated. see problem list details for updated plan management information and see below for orders placed at this visit. GA appropriate handout given. Orders Orders: Coding Level of Care Code OB Routine Diagnoses Chlamydia infection affecting in third trimester O98.813 Trimester: third trimester Supervision of other normal , antepartum Z34.80 Normal : other normal 37 weeks gestation of Z3A.37 Weeks of gestation: 37 weeks Encounter for supervision of other normal in first trimester Z34.81 Normal : other normal 04/26/18 1251 <Electronically signed by Indiana Buck MD> Date Indiana Buck MD Cosigner Signature: Date (if applicable) CC: CT/NG WCH BY PCR Collected: 04/26/2018 Status: F Source: [place] 12:00 AM [facility] REPOSITORY TYPE CODE TESTS RESULT OUT OF RANGE REFERENCE UNITS LAB L8200.2100 Negative Normal Chlam Negative Trac PCR LAB L8200.2200 Negative Normal NG by Negative PCR Performed By: #### L8200.1999 #### [facility] [address] [place] [address]. [place], [place], [address] CT/NG WCH BY PCR Collected: 04/18/2018 Status: F Source: [place] 9:42 PM [facility] REPOSITORY TYPE CODE TESTS RESULT OUT OF RANGE REFERENCE UNITS LAB L8200.2100 Negative Normal Chlam Negative Trac PCR LAB L8200.2200 Negative Normal NG by Negative PCR Performed By: #### L8200.1999 #### [facility] [address] [place], [place], [address] Observed: 04/18/2018 Status: F Source: SHAILESH CULTURE, GROUP B 9:42 PM [facility] STREPTOCOCCUS REPOSITORY ALESSANDRA Culture Group B Beta Streptococcus is not isolated. Performed By: #### M100.1800 #### [facility] [place], [address] CBC W/DIFF, AUTOMATED Collected: 04/18/2018 Status: F Source: [place] 8:59 AM [facility] REPOSITORY TYPE CODE TESTS RESULT OUT OF RANGE REFERENCE UNITS LAB L100.1000 4.4-11.0 K/mm3 Normal WBC 7.9 LAB L100.1200 4.2-5.4 M/mm3 Low RBC 3.45 LAB L100.1300 12.0-15.0 g/dl Low HGB 10.6 LAB L100.1400 37-47 % Low HCT 31.7 LAB L100.1500 81-99 fL Normal MCV 91.9 LAB L100.1600 27.0-32.0 pg Normal MCH 30.7 LAB L100.1700 32-36 g/gl Normal MCHC 33.4 LAB L100.1810 11.6-14.6 % Normal RDW CV 13.6 LAB L100.1820 35.1-43.9 fl High RDW SD 44.8 LAB L100.1900 150-450 K/mm3 Normal PLT 159 LAB L100.2000 6.2-12.0 fl Normal MPV 10.8 LAB L100.2100 47-70 % Normal NEUT% 64.4 LAB L100.2200 19-41 % Normal LY% 20.3 LAB L100.2300 0-10 % High MONO% 13.7 LAB L100.2400 0-5 % Normal EO% 0.9 LAB L100.2500 0-1 % Normal BASO% 0.3 LAB L100.2550 0.0-0.9 % Normal IM GRAN % 0.400 Result Comment: IG% - Immature Granulocytes (promyelocytes, myelocytes and metamyelocytes) > 1% indicates that a LEFT SHIFT is Present. LAB L100.2620 2.0-7.7 X10 3/uL Normal Absolute Neut 5.1 LAB L100.2720 0.83-4.51 X10 3/ul Normal Absolute Lymph 1.60 Performed By: #### L100.0100 #### [facility] [address] [place], [address] DRAFTSPERSON OFFICE VISIT Observed: 04/18/2018 Status: F Source: [place] REPORT 8:51 AM [facility] REPOSITORY [facility] [address] [place] [address] OFFICE VISIT Date of Service: 04/18/18 MR#: [id number] Acct: [id number] Name: KATHI MCFARLAND Rep #: [id number] : 1995 Provider: JACQUELINE Danielson Age/Sex: 23/F Location: [facility] Status: Signed Intake Vital Signs04/18/18 Height 5 ft 8 in 04/18/18 Weight: 187 lb 8 oz 04/18/18 Body Mass Index (BMI) 28.5 04/18/18 Blood Pressure 120/72 Intake Visit Reasons: 36 weeks Gem Cutter Required: No Is patient in pain?: No Allergies No Known Allergies Allergy (Verified 04/18/18 08:22) Medications Ferrous Sulfate 325 mg PO DAILY 07/29/14 [History Confirmed 04/18/18] Vits [Prenatabs FA ] 1 tab PO DAILY 07/29/14 [History Confirmed 04/18/18] Last Menstral Period: 08/08/17 Zika: Zika virus screening: Negative : No PFSH PFSH Family History Grandmother Diabetes Social History Smoking Status: Never smoker alcohol intake: never substance use type: does not use caffeine: Yes what type of physical activity do you participate in: walking frequency: 1-2 times per week seatbelt use: always do you feel safe at home: Yes additional social history: - Colin- Diesel Maintenance Technician 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 DatName GA/WeeksOutcome Route [facility] LocaProviderFOB e ht en [facility] tn 07/31/14Averie 42 live birNSVD 8 lbs [address] [facility] Dr. Petersen - [facility] oz cos l term HPI 36 weeks: Details: KATHI MCFARLAND is a 23 year old who presents for routine OB visit. OB Visit CONNIE Calculator Estimated Delivery Date 05/15/18 Based on LMP (certain) 08/08/17 Current WG 36w 1d Number 1 Expected Delivery Route/Plan Specific Issue/Plans flu vaccine: given minichart given: yes tdap vaccine: given rhogam: NA LARC form signed: declines labor support person: Colin pain management: epidural cut cord/dad catch: no : yes PP control planned: considering IUD special requests: Initial Weight: 170 lb Date Weight BP Urine PrFHR FuHt Pres MoCTX DilationFetal StVisit NoProviderComments E ot v te GA G Effac lucose ed Visit Notes Visit Date: 04/18/18 Doing well. No VB, LOF. DENNY Mccauley on 04/18/18 Visit Date: 04/04/18 no vb lof good fm no regular ctx Indiana Buck MD on 04/04/18 Visit Date: 03/21/18 Doing well. No VB, LOF. DENNY Mccauley on 03/21/18 Visit Date: 03/07/18 no vb lof good fm no regular ctx. Indiana Buck MD on 03/07/18 Visit Date: 02/21/18 Rash noted lower abdomen, upper thighs X 3 days. Itches. NO VB, LOF. Good FM DENNY Mccauley on 02/21/18 Visit Date: 01/23/18 no vb lof cramping diong well Indiana Buck MD on 01/23/18 Visit Date: 12/26/17 No VB, LOF. Doing well DENNY Mccauley on 12/26/17 Visit Date: 11/29/17 no vb cramping Indiana Buck MD on 11/29/17 Visit Date: 10/06/17 No visit notes to display ACOG First Trimester First Trimester: Desire for , Alcohol, Tobacco Cessation, Illicit/Recreational Drug/Substance Use, Intimate Partner Violence, Barriers to care, Unstable Housing, Communication Barriers, Environmental/Work Hazards, Anticipated Course of Care, Toxoplasmosis Precations, Use of Any medications, Sexual activity, Exercise, Dental Care, Sauna/Hot tub use, Seat Belt use, Childbirth classes/Hospital facilities, , Travel, Indications for US and Screening for Aneuploidy Second Trimester Second Trimester: Signs and Symptoms of Labor, Selecting a care provider, Reproductive Life Planning, Care Planning, Depression/Anxiety and Intimate Partner Violence; discussed Tobacco Cessation Third Trimester Third Trimester: Pain Management Plans, Labor support person(s), Immediate Larc and Movement Monitoring Diagnostics Diagnostics Labs Blood Type B POSITIVE 11/02/17 Antibody Screen NEGATIVE 11/29/17 Hct 29.8 % (37-47) L 02/21/18 Hgb 10.1 g/dl (12.0-15.0) L 02/21/18 Obstetrics Ultrasound 12/28/17 Rubella IgG Antibody > 500.0 IU/mL 11/02/17 RPR NONREACTIVE (NONREACTIVE) 11/02/17 Hep Bs Antigen Negative (Negative) 11/02/17 Chlam trachomat DNA PCR Negative (Negative) 11/02/17 N.gonorrhoeae DNA (PCR) Negative (Negative) 11/02/17 Glucose 1 Hr 50 gm 121 mg/dL (70-140) 02/21/18 Details: HIV: Urine Culture: Sequential Screen: NIPT Screen: Results [id number] Office Urine Glucose Negative Last Edit by Lisa Cueva on 04/18/18 08:24 Office Urine Protein Negative Last Edit by Lisa Cueva on 04/18/18 08:24 Assessment AND Plan Problems 1. Supervision of other normal , antepartum Z34.80 PRR G 06/30 CONNIE: 05/15/18 girl NARCISA; Antionette. Spouse Colin. 2. 36 weeks gestation of Z3A.36 declined genetic, carrier, and ntd screening. anatomy scan normal. 3. Chlamydia infection affecting in third trimester O98.813 Negative repeat 11/02/17:rpt at 36 wk 4. Anemia affecting in second trimester O99.012 Plan Orders placed: GBS, GCC, CBC Reviewed of labor precautions, movement/kick counts ACOG trimester education reviewed and updated See problem list details for updated plan of care Gestational age appropriate handout given RTO: 1 week Orders Orders: Coding Level of Care Code OB Routine Diagnoses Supervision of other normal , antepartum Z34.80 Normal : other normal 36 weeks gestation of Z3A.36 Weeks of gestation: 36 weeks Chlamydia infection affecting in third trimester O98.813 Trimester: third trimester Anemia affecting in second trimester O99.012 Trimester: second trimester 04/18/18 0851 <Electronically signed by Elizabet BALDWIN> Date Elizabet BALDWIN Cosigner Signature: Date (if applicable) CC: DRAFTSPERSON OFFICE VISIT Observed: 04/04/2018 Status: F Source: [place] REPORT 1:38 PM [facility] [address] [place] [address] OFFICE VISIT Date of Service: 04/04/18 MR#: [id number] Acct: [id number] Name: KATHI MCFARLAND Bradley Rep #: [id number] : 1995 Provider: Indiana Buck MD Age/Sex: 23/F Location: [facility] Status: Signed Intake Vital Signs04/04/18 Height 5 ft 8 in 04/04/18 Weight: 187 lb 4 oz 04/04/18 Body Mass Index (BMI) 28.4 04/04/18 Blood Pressure 114/58 L Intake Visit Reasons: 34 weeks Gem Cutter Required: No Is patient in pain?: No Allergies No Known Allergies Allergy (Verified 04/04/18 13:25) Medications Ferrous Sulfate 325 mg PO DAILY 07/29/14 [History Confirmed 04/04/18] Vits [Prenatabs FA ] 1 tab PO DAILY 07/29/14 [History Confirmed 04/04/18] Last Menstral Period: 08/08/17 Zika: Zika virus screening: Negative : No PFSH PFSH Family History Grandmother Diabetes Social History Smoking Status: Never smoker alcohol intake: never substance use type: does not use caffeine: Yes what type of physical activity do you participate in: walking frequency: 1-2 times per week seatbelt use: always do you feel safe at home: Yes additional social history: - Colin- Diesel Maintenance Technician 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 DatName GA/WeeksOutcome Route Bt WeigInfant GLabor LgAnesthesDel LocaProviderFOB e ht en ia tn 07/31/14Averie 42 live birNSVD 8 lbs [address] [facility] [address]. Peetrsen th - ful oz cos l term HPI 34 weeks: Details: KATHI MCFARLAND is a 23 year old who presents for routine OB visit. OB Visit CONNIE Calculator Estimated Delivery Date 05/15/18 Based on LMP (certain) 08/08/17 Current WG 34w 1d Number 1 Expected Delivery Route/Plan Specific Issue/Plans flu vaccine: no minichart given: yes tdap vaccine: given rhogam: NA LARC form signed: declines labor support person: Colin pain management: epidural cut cord/dad catch: no : yes PP control planned: considering IUD special requests: Initial Weight: 170 lb Date Weight BP Urine PFHR FuHt Pres MCTX DilatioFetal SVisit NProvideComment rot ov n t ote r s EGA Ef Gluco faced se 10/06/1170 lb 112/72 8 4 oz (+ 8w1 lb 4 3d oz) Visit Notes Visit Date: 04/04/18 no vb lof good fm no regular ctx Indiana Buck MD on 04/04/18 Visit Date: 03/21/18 Doing well. No VB, LOF. DENNY Mccauley on 03/21/18 Visit Date: 03/07/18 no vb lof good fm no regular ctx. Indiana Buck MD on 03/07/18 Visit Date: 02/21/18 Rash noted lower abdomen, upper thighs X 3 days. Itches. NO VB, LOF. Good FM DENNY Mccauley on 02/21/18 Visit Date: 01/23/18 no vb lof cramping diong well Indiana Buck MD on 01/23/18 Visit Date: 12/26/17 No VB, LOF. Doing well DENNY Mccauley on 12/26/17 Visit Date: 11/29/17 no vb cramping Indiana Buck MD on 11/29/17 Visit Date: 10/06/17 No visit notes to display ACOG First Trimester First Trimester: Desire for , Alcohol, Tobacco Cessation, Illicit/Recreational Drug/Substance Use, Intimate Partner Violence, Barriers to care, Unstable Housing, Communication Barriers, Environmental/Work Hazards, Anticipated Course of Care, Toxoplasmosis Precations, Use of Any medications, Sexual activity, Exercise, Dental Care, Sauna/Hot tub use, Seat Belt use, Childbirth classes/Hospital facilities, , Travel, Indications for US and Screening for Aneuploidy Second Trimester Second Trimester: Signs and Symptoms of Labor, Selecting a care provider, Reproductive Life Planning, Care Planning, Depression/Anxiety and Intimate Partner Violence; discussed Tobacco Cessation Third Trimester Third Trimester: Pain Management Plans, Labor support person(s), Immediate Larc and Movement Monitoring Diagnostics Diagnostics Labs Blood Type B POSITIVE 11/02/17 Antibody Screen NEGATIVE 11/29/17 Hct 29.8 % (37-47) L 02/21/18 Hgb 10.1 g/dl (12.0-15.0) L 02/21/18 Obstetrics Ultrasound 12/28/17 Rubella IgG Antibody > 500.0 IU/mL 11/02/17 RPR NONREACTIVE (NONREACTIVE) 11/02/17 Hep Bs Antigen Negative (Negative) 11/02/17 Chlam trachomat DNA PCR Negative (Negative) 11/02/17 N.gonorrhoeae DNA (PCR) Negative (Negative) 11/02/17 Glucose 1 Hr 50 gm 121 mg/dL (70-140) 02/21/18 Details: HIV: Urine Culture: Sequential Screen: NIPT Screen: Results [id number] Office Urine Glucose Negative Last Edit by Carmen Burr on 04/04/18 13:31 Office Urine Protein Negative Last Edit by Carmen Burr on 04/04/18 13:31 Assessment AND Plan Problems 1. Chlamydia infection affecting in third trimester O98.813; A74.9 Negative repeat 11/02/17:rpt at 36 wk 2. 34 weeks gestation of Z3A.34 declined genetic, carrier, and ntd screening. anatomy scan normal. 3. Supervision of other normal , antepartum Z34.80 PRR G 06/30 CONNIE: 05/15/18 girl PC; Antionette. Spouse Colin. Plan movement and labor precautions reviewed. ACOG trimester education reviewed and updated. see problem list details for updated plan management information and see below for orders placed at this visit. GA appropriate handout given. Orders Orders: Coding Level of Care Code OB Routine Diagnoses Chlamydia infection affecting in third trimester O98.813; A74.9 Trimester: third trimester 34 weeks gestation of Z3A.34 Weeks of gestation: 34 weeks Supervision of other normal , antepartum Z34.80 Normal : other normal 04/04/18 1338 <Electronically signed by Indiana Buck MD> Date Indiana Buck MD Cosigner Signature: Date (if applicable) CC: DRAFTSPERSON OFFICE VISIT Observed: 03/21/2018 Status: F Source: SHAILESH REPORT 10:08 AM [facility] [place] [place] [facility] [address] [place] [address] OFFICE VISIT Date of Service: 03/21/18 MR#: [id number] Acct: [id number] Name: KATHI MCFARLAND Bradley Rep #: [id number] : 1995 Provider: JACQUELINE Danielson Age/Sex: 23/F Location: [facility] Status: Signed Intake Vital Signs03/21/18 Height 5 ft 8 in 03/21/18 Weight: 187 lb 03/21/18 Body Mass Index (BMI) 28.4 03/21/18 Blood Pressure 102/60 Intake Visit Reasons: 32 weeks Gem Cutter Required: No Is patient in pain?: No Allergies No Known Allergies Allergy (Verified 03/21/18 08:41) Medications Ferrous Sulfate 325 mg PO DAILY 07/29/14 [History Confirmed 03/21/18] Vits [Prenatabs FA ] 1 tab PO DAILY 07/29/14 [History Confirmed 03/21/18] Last Menstral Period: 08/08/17 Zika: Zika virus screening: Negative : No PFSH PFSH Family History Grandmother Diabetes Social History Smoking Status: Never smoker alcohol intake: never substance use type: does not use caffeine: Yes what type of physical activity do you participate in: walking frequency: 1-2 times per week seatbelt use: always do you feel safe at home: Yes additional social history: - Colin- Diesel Maintenance Technician 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 DatName GA/WeeksOutcome Route [facility] LocaProviderFOB e ht en mn tn 07/31/14Averie 42 live birNSVD 8 lbs 15 [facility] Dr. Petersen - ful oz cos l term HPI 32 weeks: Details: KATHI MCFARLAND is a 23 year old who presents for routine OB visit. OB Visit CONNIE Calculator Estimated Delivery Date 05/15/18 Based on LMP (certain) 08/08/17 Current WG 32w 1d Number 1 Expected Delivery Route/Plan Specific Issue/Plans flu vaccine: no minichart given: yes tdap vaccine: given rhogam: NA LARC form signed: declines labor support person: Colin pain management: epidural cut cord/dad catch: no : yes PP control planned: considering IUD special requests: Initial Weight: 170 lb Date Weight BP Urine PFHR FuHt Pres MCTX DilatioFetal SVisit NProvideComment rot ov n t ote r s EGA Ef Gluco faced se 10/06/1170 lb 112/72 8 4 oz (+ 8w1 lb 4 3d oz) Visit Notes Visit Date: 03/21/18 Doing well. No VB, LOF. DARIANA MccauleyC on 03/21/18 Visit Date: 03/07/18 no vb lof good fm no regular ctx. Indiana Buck MD on 03/07/18 Visit Date: 02/21/18 Rash noted lower abdomen, upper thighs X 3 days. Itches. NO VB, LOF. Good FM Elizabet Danielson NP-C on 02/21/18 Visit Date: 01/23/18 no vb lof cramping diong well Indiana Buck MD on 01/23/18 Visit Date: 12/26/17 No VB, LOF. Doing well DARIANA MccauleyC on 12/26/17 Visit Date: 11/29/17 no vb cramping Indiana Buck MD on 11/29/17 Visit Date: 10/06/17 No visit notes to display ACOG First Trimester First Trimester: Desire for , Alcohol, Tobacco Cessation, Illicit/Recreational Drug/Substance Use, Intimate Partner Violence, Barriers to care, Unstable Housing, Communication Barriers, Environmental/Work Hazards, Anticipated Course of Care, Toxoplasmosis Precations, Use of Any medications, Sexual activity, Exercise, Dental Care, Sauna/Hot tub use, Seat Belt use, Childbirth classes/Hospital facilities, , Travel, Indications for US and Screening for Aneuploidy Second Trimester Second Trimester: Signs and Symptoms of Labor, Selecting a care provider, Reproductive Life Planning, Care Planning, Depression/Anxiety and Intimate Partner Violence; discussed Tobacco Cessation Third Trimester Third Trimester: Pain Management Plans, Labor support person(s), Immediate Larc and Movement Monitoring Diagnostics Diagnostics Labs Blood Type B POSITIVE 11/02/17 Antibody Screen NEGATIVE 11/29/17 Hct 29.8 % (37-47) L 02/21/18 Hgb 10.1 g/dl (12.0-15.0) L 02/21/18 Obstetrics Ultrasound 12/28/17 Rubella IgG Antibody > 500.0 IU/mL 11/02/17 RPR NONREACTIVE (NONREACTIVE) 11/02/17 Hep Bs Antigen Negative (Negative) 11/02/17 Chlam trachomat DNA PCR Negative (Negative) 11/02/17 N.gonorrhoeae DNA (PCR) Negative (Negative) 11/02/17 Glucose 1 Hr 50 gm 121 mg/dL (70-140) 02/21/18 Rhogam given: No 08/02/14 Details: HIV: Urine Culture: Sequential Screen: NIPT Screen: Office Meds Flucelvax Quad [id number] (PF) Performing Provider: DENNY Mccauley Administered by: Mesha Seay on 03/21/18 08:58 Dose Route Admin Location Lot Number Expiration Date NDC Ink Technician 60 mcg IM left deltoid [id number] 11/26/18 73820-476-56 SEQIRUS Results [email or web address] Office Urine Glucose Negative Last Edit by Mesha Seay on 03/21/18 08:46 Office Urine Protein Negative Last Edit by Mesha Seay on 03/21/18 08:46 Assessment AND Plan Problems 1. Encounter for supervision of other normal in first trimester Z34.81 PRR G 06/30 CONNIE: 05/15/18 girl PC; Antionette. Spouse Colin. 2. 32 weeks gestation of Z3A.32 declined genetic, carrier, and ntd screening. anatomy scan normal. 3. Chlamydia infection affecting in second trimester O98.812 Negative repeat 11/02/17:rpt at 36 wk Plan Orders placed: flu Reviewed of labor precautions, movement/kick counts ACOG trimester education reviewed and updated See problem list details for updated plan of care Gestational age appropriate handout given RTO: 2 weeks Orders Orders: Medications Discontinued: Flucelvax Quad [id number] (PF) (flu vac qs 2018(4 yr60 mcg (0.5 mL) IM ONCE 1 mL 0RF NS Z23 up)CD(PF)) Discontinued Reason: Office Medicat ion has been Documented as given Coding Level of Care Code OB Routine Diagnoses Encounter for supervision of other normal in first trimester Z34.81 Normal : other normal 32 weeks gestation of Z3A.32 Weeks of gestation: 32 weeks Chlamydia infection affecting in second trimester O98.812 Trimester: second trimester 03/21/18 1008 <Electronically signed by Elizabet BALDWIN> Date Elizabet BALDWIN Cosigner Signature: Date (if applicable) CC: DRAFTSPERSON OFFICE VISIT Observed: 03/07/2018 Status: F Source: SHAILESH REPORT 9:18 AM [facility] REPOSITORY [place] [facility] [address] [place] [address] OFFICE VISIT Date of Service: 03/07/18 MR#: [id number] Acct: [id number] Name: KATHI MCFARLAND Rep #: [id number] : 1995 Provider: Indiana Buck MD Age/Sex: 23/F Location: [facility] Status: Signed Intake Vital Signs03/07/18 Height 5 ft 8 in 03/07/18 Weight: 185 lb 6 oz 03/07/18 Body Mass Index (BMI) 28.1 03/07/18 Blood Pressure 106/50 L Intake Visit Reasons: 30 weeks Chief Complaint: est ob Gem Cutter Required: No Is patient in pain?: No Allergies No Known Allergies Allergy (Verified 03/07/18 08:50) Medications Ferrous Sulfate 325 mg PO DAILY 07/29/14 [History Confirmed 03/07/18] Vits [Prenatabs FA ] 1 tab PO DAILY 07/29/14 [History Confirmed 03/07/18] Last Menstral Period: 08/08/17 Zika: Zika virus screening: Negative : No PFSH PFSH Family History Grandmother Diabetes Social History Smoking Status: Never smoker alcohol intake: never substance use type: does not use caffeine: Yes what type of physical activity do you participate in: walking frequency: 1-2 times per week seatbelt use: always do you feel safe at home: Yes additional social history: - Colin- Diesel Maintenance Technician 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 DatName GA/WeeksOutcome Route [facility] LocaProviderFOB e ht en [facility] tn 07/31/14Averie 42 live birNSVD 8 lbs 15 [facility] [address]. Petersen th - ful oz cos l term HPI 30 weeks: Details: KATHI MCFARLAND is a 23 year old who presents for routine OB visit. Patient declines flu vaccine OB Visit CONNIE Calculator Estimated Delivery Date 05/15/18 Based on LMP (certain) 08/08/17 Current WG 30w 1d Number 1 Expected Delivery Route/Plan Specific Issue/Plans flu vaccine: no minichart given: yes tdap vaccine: given rhogam: NA LARC form signed: declines labor support person: Colin pain management: epidural cut cord/dad catch: no : yes PP control planned: considering IUD special requests: Initial Weight: 170 lb Date Weight BP Urine PrFHR FuHt Pres MoCTX DilationFetal StVisit NoProviderComments E ot v te GA G Effac lucose ed Visit Notes Visit Date: 03/07/18 no vb lof good fm no regular ctx. Indiana Buck MD on 03/07/18 Visit Date: 02/21/18 Rash noted lower abdomen, upper thighs X 3 days. Itches. NO VB, LOF. Good FM DARIANA MccauleyC on 02/21/18 Visit Date: 01/23/18 no vb lof cramping diong well Indiana Buck MD on 01/23/18 Visit Date: 12/26/17 No VB, LOF. Doing well DARIANA MccauleyC on 12/26/17 Visit Date: 11/29/17 no vb cramping Indiana Buck MD on 11/29/17 Visit Date: 10/06/17 No visit notes to display ACOG First Trimester First Trimester: Desire for , Alcohol, Tobacco Cessation, Illicit/Recreational Drug/Substance Use, Intimate Partner Violence, Barriers to care, Unstable Housing, Communication Barriers, Environmental/Work Hazards, Anticipated Course of Care, Nurtrition and weight gain, Toxoplasmosis Precations, Use of Any medications, Sexual activity, Exercise, Dental Care, Sauna/Hot tub use, Seat Belt use, Childbirth classes/Hospital facilities, , Travel, Indications for US and Screening for Aneuploidy Second Trimester Second Trimester: Signs and Symptoms of Labor, Selecting a care provider, Care Planning (12 weeks off, mom for childcare), Depression/Anxiety, Intimate Partner Violence and Reproductive Life Planning (iud); discussed Tobacco Cessation Third Trimester Third Trimester: Pain Management Plans (epidural), Labor support person(s), Movement Monitoring and Immediate Larc (dclined) Diagnostics Diagnostics Labs Blood Type B POSITIVE 11/02/17 Antibody Screen NEGATIVE 11/29/17 Hct 29.8 % (37-47) L 02/21/18 Hgb 10.1 g/dl (12.0-15.0) L 02/21/18 Obstetrics Ultrasound 12/28/17 Rubella IgG Antibody > 500.0 IU/mL 11/02/17 RPR NONREACTIVE (NONREACTIVE) 11/02/17 Hep Bs Antigen Negative (Negative) 11/02/17 Chlam trachomat DNA PCR Negative (Negative) 11/02/17 N.gonorrhoeae DNA (PCR) Negative (Negative) 11/02/17 Glucose 1 Hr 50 gm 121 mg/dL (70-140) 02/21/18 Group B Strep DNA Negative (Negative) 06/20/14 Rhogam given: No 08/02/14 Details: HIV: Urine Culture: Sequential Screen: NIPT Screen: Results [email or web address] Office Urine Glucose Negative Last Edit by Nora Arias on 03/07/18 08:54 Office Urine Protein Negative Last Edit by Nora Arias on 03/07/18 08:54 Assessment AND Plan Problems 1. Chlamydia infection affecting in second trimester O98.812 Negative repeat 11/02/17:rpt at 36 wk 2. Encounter for supervision of other normal in first trimester Z34.81 PRR G 06/30 CONNIE: 05/15/18 girl PC; Antionette. Spouse Colin. 3. 30 weeks gestation of Z3A.30 declined genetic, carrier, and ntd screening. anatomy scan normal. Plan movement and labor precautions reviewed. ACOG trimester education reviewed and updated. see problem list details for updated plan management information and see below for orders placed at this visit. GA appropriate handout given. Orders Orders: Coding Level of Care Code OB Routine Diagnoses Chlamydia infection affecting in second trimester O98.812 Trimester: second trimester Encounter for supervision of other normal in first trimester Z34.81 Normal : other normal 30 weeks gestation of Z3A.30 Weeks of gestation: 30 weeks 10/09/18 0918 <Electronically signed by Indiana Buck MD> Date Indiana Buck MD Cosigner Signature: Date (if applicable) CC: CBC W/DIFF, AUTOMATED Collected: 02/21/2018 Status: F Source: SHAILESH 9:28 AM [facility] REPOSITORY TYPE CODE TESTS RESULT OUT OF RANGE REFERENCE UNITS LAB L100.1000 4.4-11.0 K/mm3 Normal WBC 7.6 LAB L100.1200 4.2-5.4 M/mm3 Low RBC 3.27 LAB L100.1300 12.0-15.0 g/dl Low HGB 10.1 LAB L100.1400 37-47 % Low HCT 29.8 LAB L100.1500 81-99 fL Normal MCV 91.1 LAB L100.1600 27.0-32.0 pg Normal MCH 30.9 LAB L100.1700 32-36 g/gl Normal MCHC 33.9 LAB L100.1810 11.6-14.6 % Normal RDW CV 13.4 LAB L100.1820 35.1-43.9 fl High RDW SD 44.3 LAB L100.1900 150-450 K/mm3 Normal PLT 186 LAB L100.2000 6.2-12.0 fl Normal MPV 10.9 LAB L100.2100 47-70 % High NEUT% 71.5 LAB L100.2200 19-41 % Low LY% 18.9 LAB L100.2300 0-10 % Normal MONO% 7.1 LAB L100.2400 0-5 % Normal EO% 1.8 LAB L100.2500 0-1 % Normal BASO% 0.3 LAB L100.2550 0.0-0.9 % Normal IM GRAN % 0.400 Result Comment: IG% - Immature Granulocytes (promyelocytes, myelocytes and metamyelocytes) > 1% indicates that a LEFT SHIFT is Present. LAB L100.2620 2.0-7.7 X10 3/uL Normal Absolute Neut 5.4 LAB L100.2720 0.83-4.51 X10 3/ul Normal Absolute Lymph 1.43 Performed By: #### L100.0100, L501.0250 #### [place] [facility] [address] [place], [address] GLUCOSE CHALLENGE GEST Collected: 02/21/2018 Status: F Source: SHAILESH 1H 50G 9:28 AM [facility] REPOSITORY Order Comment: Comments: Draw lab at 9:28am Comments: Draw lab at 9:28am TYPE CODE TESTS RESULT OUT OF RANGE REFERENCE UNITS LAB L501.0250 70-140 mg/dL Normal GLU GEST 121 50g 1H Performed By: #### L100.0100, L501.0250 #### [place] [facility] [address] [place], [address] DRAFTSPERSON OFFICE VISIT Observed: 02/21/2018 Status: F Source: SHAILESH REPORT 8:46 AM [facility] REPOSITORY [facility] [address] [place] [address] OFFICE VISIT Date of Service: 02/21/18 MR#: [id number] Acct: [id number] Name: KATHI MCFARLAND Rep #: [id number] : 1995 Provider: JACQUELINE Danielson Age/Sex: 23/F Location: [facility] Status: Signed Intake Vital Signs02/21/18 Height 5 ft 8 in 02/21/18 Weight: 182 lb 8 oz 02/21/18 Body Mass Index (BMI) 27.7 02/21/18 Blood Pressure 123/72 H Intake Visit Reasons: 28 weeks Gem Cutter Required: No Is patient in pain?: No Allergies No Known Allergies Allergy (Verified 02/21/18 08:15) Medications Ferrous Sulfate 325 mg PO DAILY 07/29/14 [History Confirmed 02/21/18] Vits [Prenatabs FA ] 1 tab PO DAILY 07/29/14 [History Confirmed 02/21/18] Last Menstral Period: 08/08/17 Zika: Zika virus screening: Negative : No PFSH PFSH Family History Grandmother Diabetes Social History Smoking Status: Never smoker alcohol intake: never substance use type: does not use caffeine: Yes what type of physical activity do you participate in: walking frequency: 1-2 times per week seatbelt use: always do you feel safe at home: Yes additional social history: - Colin- Diesel Maintenance Technician 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 DatName GA/WeeksOutcome Route [facility] LgAn[facility]Del LocaProviderFOB e ht en ia tn 07/31/14Averie 42 live birNSVD 8 lbs [address] [facility] Dr. Petersen - ful oz cos l term HPI 28 weeks: Details: KATHI MCFARLAND is a 23 year old who presents for routine OB visit. OB Visit CONNIE Calculator Estimated Delivery Date 05/15/18 Based on LMP (certain) 08/08/17 Current WG 28w 1d Number 1 Expected Delivery Route/Plan Specific Issue/Plans flu vaccine: no minichart given: yes tdap vaccine: given rhogam: NA LARC form signed: declines labor support person: Colin pain management: epidural cut cord/dad catch: no : yes PP control planned: considering IUD special requests: [] Initial Weight: 170 lb Date Weight BP Urine PrFHR FuHt Pres MoCTX DilationFetal StVisit NoProviderComments E ot v te GA G Effac lucose ed Visit Notes Visit Date: 02/21/18 Rash noted lower abdomen, upper thighs X 3 days. Itches. NO VB, LOF. Good FM DENNY Mccauley on 02/21/18 Visit Date: 01/23/18 no vb lof cramping diong well Indiana Buck MD on 01/23/18 Visit Date: 12/26/17 No VB, LOF. Doing well DENNY Mccauley on 12/26/17 Visit Date: 11/29/17 no vb cramping Indiana Buck MD on 11/29/17 Visit Date: 10/06/17 No visit notes to display ACOG First Trimester First Trimester: Desire for Diagnostics Diagnostics Labs Blood Type B POSITIVE 11/02/17 Antibody Screen NEGATIVE 11/29/17 Hct 35.9 % (37-47) L 11/02/17 Hgb 12.4 g/dl (12.0-15.0) 11/02/17 Obstetrics Ultrasound 12/28/17 Rubella IgG Antibody > 500.0 IU/mL 11/02/17 RPR NONREACTIVE (NONREACTIVE) 11/02/17 Hep Bs Antigen Negative (Negative) 11/02/17 Chlam trachomat DNA PCR Negative (Negative) 11/02/17 N.gonorrhoeae DNA (PCR) Negative (Negative) 11/02/17 Glucose 1 Hr 50 gm 121 mg/dL (70-140) 05/06/14 Group B Strep DNA Negative (Negative) 06/20/14 Rhogam given: No 08/02/14 Details: HIV: Urine Culture: Sequential Screen: NIPT Screen: Results [email or web address] Office Urine Glucose Negative Last Edit by Camren Burr on 02/21/18 08:30 Office Urine Protein Negative Last Edit by Carmen Burr on 02/21/18 08:30 Immunizations Boostrix Tdap Performing Provider: DENNY Mccauley Administered by: Carmen Burr on 02/21/18 08:30 Dose Route Admin Location Lot Number Expiration Date [facility] Ink Technician 0.5 mL IM Left Deltoid [id number] 04/22/19 [id number] [employer] VIS Given Date VIS Publication Date 02/21/18 07/23/14 Eligibility Eligibility Date Assessment AND Plan Problems 1. Encounter for supervision of other normal in first trimester Z34.81 PRR G 06/30 CONNIE: 05/15/18 girl PC; Antionette. Spouse Colin. 2. Chlamydia infection affecting in second trimester O98.812 Negative repeat 11/02/17:rpt at 36 wk 3. 28 weeks gestation of Z3A.28 4. PUPP (pruritic urticarial papules and plaques of ) O26.86 Plan Orders placed: 28 wk labs, tdap Benadryl for itching as needed Reviewed of labor precautions, movement/kick counts ACOG trimester education reviewed and updated See problem list details for updated plan of care Gestational age appropriate handout given RTO: 2 weeks Orders Orders: Medications Discontinued: Boostrix Tdap (diphth,pertus(acell),tetanus) Discontinued 0.5 mL IM ONCE #1 0RF NS Z23 Reason: Office Medication has been Documented as given Coding Level of Care Code OB Routine Diagnoses Encounter for supervision of other normal in first trimester Z34.81 Normal : other normal Chlamydia infection affecting in second trimester O98.812 Trimester: second trimester 28 weeks gestation of Z3A.28 Weeks of gestation: 28 weeks PUPP (pruritic urticarial papules and plaques of ) O26.86 02/21/18 0846 <Electronically signed by Elizabet BALDWIN> Date Elizabet BALDWIN Cosigner Signature: Date (if applicable) CC: DRAFTSPERSON OFFICE VISIT Observed: 01/23/2018 Status: F Source: SHAILESH REPORT 12:00 PM [facility] [place] [place] [facility] [address] [place] [address] OFFICE VISIT Date of Service: 01/23/18 MR#: [id number] Acct: [id number] Name: KATHI MCFARLAND Rep #: [id number] : 1995 Provider: Indiana Buck MD Age/Sex: 23/F Location: [facility] Status: Signed Intake Vital Signs01/23/18 Height 5 ft 8 in 01/23/18 Weight: 179 lb 8 oz 01/23/18 Body Mass Index (BMI) 27.3 01/23/18 Blood Pressure 131/73 Intake Visit Reasons: 24 weeks Gem Cutter Required: No Is patient in pain?: No Allergies No Known Allergies Allergy (Verified 01/23/18 11:35) Medications Ferrous Sulfate [Ferrous Sulfate] 325 mg PO DAILY 07/29/14 [History Confirmed 01/23/18] Vits [Prenatabs FA ] 1 tab PO DAILY 07/29/14 [History Confirmed 01/23/18] Last Menstral Period: 08/08/17 Zika: Zika virus screening: Negative : No PFSH PFSH Family History Grandmother Diabetes Social History Smoking Status: Never smoker alcohol intake: never substance use type: does not use caffeine: Yes what type of physical activity do you participate in: walking frequency: 1-2 times per week seatbelt use: always do you feel safe at home: Yes additional social history: - Colin- Diesel Maintenance Technician 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 DatName GA/WeeksOutcome Route [facility] LocaProviderFOB e ht en [facility] tn 07/31/14Averie 42 live birNSVD 8 lbs [address] [facility] Dr. Petersen - ful oz cos l term HPI 24 weeks: Details: KATHI MCFARLAND is a 23 year old who presents for routine OB visit. OB Visit CONNIE Calculator Estimated Delivery Date 05/15/18 Based on LMP (certain) 08/08/17 Current WG 24w 0d Number 1 Expected Delivery Route/Plan Specific Issue/Plans flu vaccine: no minichart given: yes tdap vaccine: [] rhogam: [] LARC form signed: [] labor support person: Colin pain management: epidural cut cord/dad catch: no : yes PP control planned: [] special requests: [] Initial Weight: 170 lb Date Weight BP Urine PrFHR FuHt Pres MoCTX DilationFetal StVisit NoProviderComments E ot v te GA G Effac lucose ed Visit Notes Visit Date: 01/23/18 no vb lof cramping diong well Indiana Buck MD on 01/23/18 Visit Date: 12/26/17 No VB, LOF. Doing well DENNY Mccauley on 12/26/17 Visit Date: 11/29/17 no vb cramping Indiana Buck MD on 11/29/17 Visit Date: 10/06/17 No visit notes to display ACOG First Trimester First Trimester: Desire for Diagnostics Diagnostics Labs Blood Type B POSITIVE 11/02/17 Antibody Screen NEGATIVE 11/29/17 Hct 35.9 % (37-47) L 11/02/17 Hgb 12.4 g/dl (12.0-15.0) 11/02/17 Obstetrics Ultrasound 12/28/17 Rubella IgG Antibody > 500.0 IU/mL 11/02/17 RPR NONREACTIVE (NONREACTIVE) 11/02/17 Hep Bs Antigen Negative (Negative) 11/02/17 Chlam trachomat DNA PCR Negative (Negative) 11/02/17 N.gonorrhoeae DNA (PCR) Negative (Negative) 11/02/17 Glucose 1 Hr 50 gm 121 mg/dL (70-140) 05/06/14 Group B Strep DNA Negative (Negative) 06/20/14 Rhogam given: No 08/02/14 Details: HIV: Urine Culture: Sequential Screen: NIPT Screen: Results [id number] Office Urine Glucose Negative Last Edit by Carmen Burr on 01/23/18 11:44 Office Urine Protein Negative Last Edit by Carmen Burr on 01/23/18 11:44 Assessment AND Plan Problems 1. Chlamydia infection affecting in second trimester O98.812 Negative repeat 11/02/17 2. Encounter for supervision of other normal in first trimester Z34.81 PRR G 06/30 CONNIE: 05/15/18 girl PC; Antionette. Spouse Colin. Plan ACOG trimester education reviewed and updated. see problem list details for updated plan management information and see below for orders placed at this visit. GA appropriate handout given. Orders Orders: Coding Level of Care Code OB Routine Diagnoses Chlamydia infection affecting in second trimester O98.812 Trimester: second trimester Encounter for supervision of other normal in first trimester Z34.81 Normal : other normal 01/23/18 1200 <Electronically signed by Indiana Buck MD> Date Indiana Buck MD Cosigner Signature: Date (if applicable) CC: OB ANATOMY SCAN Observed: 12/28/2017 Status: F Source: [place] 12:15 PM [facility] REPOSITORY [facility] Imaging [place] [address] [place] [address] OB Anatomy Scan MR#: [id number] Acct: [id number] Name: KATHI MCFARLAND Rep #: [id number] : 1995 F 22 From: Nikita Mcallister MD PCP: Care Physician, No Primary Status: REG CLI Study: OB Anatomy Scan Date of Exam: 12/28/17 Exam# [id number] Ordering Dr: Elizabet Danielson ARTIFICIAL CHERRY MAKER-C STUDY: SECOND AND THIRD TRIMESTER OBSTETRICAL ULTRASOUND REASON FOR EXAM: Female, 22 years old. Anatomy LMP: TECHNIQUE: Transabdominal PRIOR ULTRASOUND: None. FINDINGS: There is a single intrauterine fetus. The fetus is in a cephalic presentation. There is demonstrated cardiac activity with a heart rate of 136 bpm. There is a normal amniotic fluid volume. The largest amniotic fluid pocket measures 4.7 cm. The placenta is posterior in location and is not low lying. There are Grade 0 placental changes. The cervix measures 4.5 cm in length. The bilateral adnexal regions are normal. BIOMETRY: BPD: 45mm: 19 weeks, 5 days HC: 179mm: 20 weeks, 3 days AC: 165mm: 21 weeks, 4 days FL: 35mm: 21 weeks, 1 days CI: 71 FL/BPD: 78 FL/HC: FL/AC: 21 HC/AC: 1.08 age by current US: 20 weeks, 5 days. CONNIE by current US: 05.12.18. Estimated weight: 402 grams, +/- 14 grams, 88 %. Age by LMP: 20 weeks, 2 days. CONNIE by LMP: 05.15.18. ANATOMY: Gender: Female Cranium: Normal lateral ventricles. Normal choroid plexus. Normal cerebellum. Normal cisterna magna. Normal face, nose and lips. Chest: Normal 4-chamber heart. Abdomen/Pelvis: Normal diaphragm. Normal stomach. Normal abdominal wall. Normal cord insertion. Normal 3 vessel cord. Normal right kidney. Minimal dilation of the left renal pelvis. Normal bladder. Spine: Normal cervical spine. Normal thoracic spine. Normal lumbar spine. Normal sacrum. Extremities: Normal bilateral upper extremities. Normal bilateral lower extremities. US/OB Anatomy Scan IMPRESSION: There is a single live intrauterine with a heart rate of 136 bpm. age by current US: 20 weeks, 5 days. CONNIE by current US: 05.12.18. Unremarkable anatomic survey. Electronically Signed: Nikita Mcallister MD at 18:13 EDT , Service support , CC: JACQUELINE Danielson; No Primary Care Physician Client Delivery Specialist: Signed DRAFTSPERSON OFFICE VISIT Observed: 12/26/2017 Status: F Source: [place] REPORT 3:40 PM [facility] [address] [place] [address] OFFICE VISIT Date of Service: 12/26/17 MR#: [id number] Acct: [id number] Name: KATHI MCFARLAND Bradley Rep #: [id number] : 1995 Provider: JACQUELINE Danielson Age/Sex: 22/F Location: [facility] Status: Signed Intake Vital Signs12/26/17 Body Mass Index (BMI) 26.6 Intake Visit Reasons: 20 week ob Chief Complaint: est ob Gem Cutter Required: No Is patient in pain?: No Allergies No Known Allergies Allergy (Verified 12/26/17 15:30) Medications Ferrous Sulfate [Ferrous Sulfate] 325 mg PO DAILY 07/29/14 [History Confirmed 12/26/17] Vits [Prenatabs FA ] 1 tab PO DAILY 07/29/14 [History Confirmed 07/30/18] Last Menstral Period: 08/08/17 Zika: Zika virus screening: Negative : No PFSH PFSH Family History Grandmother Diabetes Social History Smoking Status: Never smoker alcohol intake: never substance use type: does not use caffeine: Yes what type of physical activity do you participate in: walking frequency: 1-2 times per week seatbelt use: always do you feel safe at home: Yes additional social history: - Colin- Diesel Maintenance Technician 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 DatName GA/WeeksOutcome Route [facility] WeigInfant GLabor LgAnesthesDel LocaProviderFOB e ht en ia tn 07/31/14Averie 42 live birNSVD 8 lbs [address] [facility] [address]. Nicola pretty - ful oz cos l term HPI 20 week ob: Details: KATHI MCFARLAND is a 22 year old who presents for routine OB visit. OB Visit CONNIE Calculator Estimated Delivery Date 05/15/18 Based on LMP (certain) 08/08/17 Current WG 20w 0d Number 1 Expected Delivery Route/Plan Specific Issue/Plans flu vaccine: no minichart given: yes tdap vaccine: [] rhogam: [] LARC form signed: [] labor support person: Colin pain management: epidural cut cord/dad catch: no : yes PP control planned: [] special requests: [] Initial Weight: Not Recorded Date Weight BP Urine PrFHR FuHt Pres MoCTX DilationFetal StVisit NoProviderComments E ot v te GA G Effac lucose ed Visit Notes Visit Date: 12/26/17 No VB, LOF. Doing well DENNY Mccauley on 12/26/17 Visit Date: 11/29/17 no vb cramping Indiana Buck MD on 11/29/17 Visit Date: 10/06/17 No visit notes to display ACOG First Trimester First Trimester: Desire for Diagnostics Diagnostics Labs Blood Type B POSITIVE 11/02/17 Antibody Screen NEGATIVE 11/29/17 Hct 35.9 % (37-47) L 11/02/17 Hgb 12.4 g/dl (12.0-15.0) 11/02/17 Rubella IgG Antibody > 500.0 IU/mL 11/02/17 RPR NONREACTIVE (NONREACTIVE) 11/02/17 Hep Bs Antigen Negative (Negative) 11/02/17 Chlam trachomat DNA PCR Negative (Negative) 11/02/17 N.gonorrhoeae DNA (PCR) Negative (Negative) 11/02/17 Glucose 1 Hr 50 gm 121 mg/dL (70-140) 05/06/14 Group B Strep DNA Negative (Negative) 06/20/14 Rhogam given: No 08/02/14 Details: HIV: Urine Culture: Sequential Screen: NIPT Screen: Results [email or web address] Office Urine Glucose Negative Last Edit by Nora Arias on 12/26/17 15:32 Office Urine Protein Negative Last Edit by Nora Arias on 12/26/17 15:32 Assessment AND Plan Problems 1. Encounter for supervision of other normal in first trimester Z34.81 PRR G 06/30 CONNIE: 05/15/18 PC; Antionette. Spouse Colin. 2. Chlamydia infection affecting in second trimester O98.812 Negative repeat 11/02/17 3. 20 weeks gestation of Z3A.20 Plan Orders placed: anatomy US this week Reviewed of labor precautions, movement/kick counts ACOG trimester education reviewed and updated See problem list details for updated plan of care Gestational age appropriate handout given RTO: 4 weeks Orders Orders: Coding Level of Care Code OB Routine Diagnoses Encounter for supervision of other normal in first trimester Z34.81 Normal : other normal Chlamydia infection affecting in second trimester O98.812 Trimester: second trimester 20 weeks gestation of Z3A.20 12/26/17 1540 <Electronically signed by Elizabet BALDWIN> Date Elizabet BALDWIN Cosigner Signature: Date (if applicable) CC: ANTIBODY SCREEN Collected: 11/29/2017 Status: F Source: [place] 2:15 PM [facility] REPOSITORY TYPE CODE TESTS RESULT OUT OF RANGE REFERENCE UNITS LAB B100.4000 Normal Antibody NEGATIVE Screen Performed By: #### B100.4000 #### [place] [facility] [address] [place], [address] DRAFTSPERSON OFFICE VISIT Observed: 11/29/2017 Status: F Source: [place] REPORT 2:01 PM [facility] REPOSITORY [facility] [address] [place] [address] OFFICE VISIT Date of Service: 11/29/17 MR#: [id number] Acct: [id number] Name: KATHI MCFARLAND Rep #: [id number] : 1995 Provider: Indiana Buck MD Age/Sex: 22/F Location: [facility] Status: Signed Intake Vital Signs11/29/17 Height 5 ft 7 in 11/29/17 Weight: 170 lb 11/29/17 Body Mass Index (BMI) 26.6 11/29/17 Blood Pressure 106/62 Intake Visit Reasons: 16 week ob Is patient in pain?: No Allergies No Known Allergies Allergy (Verified 11/29/17 13:42) Medications Ferrous Sulfate [Ferrous Sulfate] 325 mg PO DAILY 07/29/14 [History Confirmed 10/06/17] Vits [Prenatabs FA ] 1 tab PO DAILY 07/29/14 [History Confirmed 10/06/17] Last Menstral Period: 08/08/17 Zika: Zika virus screening: Negative : No PFSH PFSH Family History Grandmother Diabetes Social History Smoking Status: Never smoker alcohol intake: never substance use type: does not use caffeine: Yes what type of physical activity do you participate in: walking frequency: 1-2 times per week seatbelt use: always do you feel safe at home: Yes additional social history: - Colin- Diesel Maintenance Technician 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 DatName GA/WeeksOutcome Route [facility] Y[facility] Owens LgAnesthesDel LocaProviderFOB e ht en th ia tn 07/31/14Averie 42 live birNSVD 8 lbs [address] [facility] [address] Nicola pretty - ful oz cos l term HPI 16 week ob: Details: KATHI MCFARLAND is a 22 year old who presents for routine OB visit. OB Visit CONNIE Calculator Estimated Delivery Date 05/15/18 Based on LMP (certain) 08/08/17 Current WG 16w 1d Number 1 Expected Delivery Route/Plan Specific Issue/Plans flu vaccine: no minichart given: yes tdap vaccine: [] rhogam: [] LARC form signed: [] labor support person: [] pain management: [] cut cord/dad catch: [] : [] PP control planned: [] special requests: [] Initial Weight: Not Recorded Date Weight BP Urine PrFHR FuHt Pres MoCTX DilationFetal StVisit NoProviderComments E ot v te GA G Effac lucose ed Visit Notes Visit Date: 11/29/17 no vb cramping Indiana Buck MD on 11/29/17 Visit Date: 10/06/17 No visit notes to display ACOG First Trimester First Trimester: Desire for Diagnostics Diagnostics Labs Blood Type B POSITIVE 11/02/17 Antibody Screen NEGATIVE 07/29/14 Hct 35.9 % (37-47) L 11/02/17 Hgb 12.4 g/dl (12.0-15.0) 11/02/17 Rubella IgG Antibody > 500.0 IU/mL 11/02/17 RPR NONREACTIVE (NONREACTIVE) 11/02/17 Hep Bs Antigen Negative (Negative) 11/02/17 Chlam trachomat DNA PCR Negative (Negative) 11/02/17 N.gonorrhoeae DNA (PCR) Negative (Negative) 11/02/17 Glucose 1 Hr 50 gm 121 mg/dL (70-140) 05/06/14 Group B Strep DNA Negative (Negative) 06/20/14 Rhogam given: No 08/02/14 Details: HIV: neg Urine Culture: neg Sequential Screen: NIPT Screen: Results [id number] Office Urine Glucose Negative Last Edit by Mehsa Seay on 11/29/17 13:45 Office Urine Protein Negative Last Edit by Mesha Seay on 11/29/17 13:45 Assessment AND Plan Problems 1. Chlamydia infection affecting in second trimester O98.812; A74.9 Negative repeat 11/02/17 2. Encounter for supervision of other normal in first trimester Z34.81 PRR G 06/30 CONNIE: 05/15/18 PC; Antionette. Spouse Colin. Plan Orders placed: antibody screen ACOG trimester education reviewed and updated. see problem list details for updated plan management information. GA appropriate handout given. Orders Orders: Coding Level of Care Code OB Routine Diagnoses Chlamydia infection affecting in second trimester O98.812; A74.9 Trimester: second trimester Encounter for supervision of other normal in first trimester Z34.81 Normal : other normal 11/29/17 1401 <Electronically signed by Indiana Buck MD> Date Indiana Buck MD Cosign Signature: Date (if applicable) CC: DOWNTIME REPORT Observed: 11/17/2017 Status: F Source: [place] 1:15 PM [facility] REPOSITORY [facility] Medical Records Department [address] [address] Downtime Report MR#: [id number] Acct: [id number] Name: KATHI MCFARLAND Rep #: [id number] : 1995 22 From: Frank Moore PCP: Care Physician, No Primary Status: REG CLI This patient was seen during an EMR downtime October 31, 2017 - November 07, 2017. This patient may have a combination of paper and electronic documentation or all paper documentation. All documentation is viewable within the e-chart portion of [employer] for each patient visit. CBC W/DIFF, AUTOMATED Collected: 11/02/2017 Status: F Source: [place] 3:05 PM [facility] REPOSITORY TYPE CODE TESTS RESULT OUT OF RANGE REFERENCE UNITS LAB L100.1000 4.4-11.0 K/mm3 Normal WBC 8.9 LAB L100.1200 4.2-5.4 M/mm3 Low RBC 4.13 LAB L100.1300 12.0-15.0 g/dl Normal HGB 12.4 LAB L100.1400 37-47 % Low HCT 35.9 LAB L100.1500 81-99 fL Normal MCV 86.9 LAB L100.1600 27.0-32.0 pg Normal MCH 30.0 LAB L100.1700 32-36 g/gl Normal MCHC 34.5 LAB L100.1810 11.6-14.6 % Normal RDW CV 12.2 LAB L100.1820 35.1-43.9 fl Normal RDW SD 39.0 LAB L100.1900 150-450 K/mm3 Normal PLT 251 LAB L100.2000 6.2-12.0 fl Normal MPV 11.3 LAB L100.2100 47-70 % High NEUT% 70.7 LAB L100.2200 19-41 % Normal LY% 20.7 LAB L100.2300 0-10 % Normal MONO% 6.9 LAB L100.2400 0-5 % Normal EO% 1.3 LAB L100.2500 0-1 % Normal BASO% 0.3 LAB L100.2550 0.0-0.9 % Normal IM GRAN % 0.100 Result Comment: IG% - Immature Granulocytes (promyelocytes, myelocytes and metamyelocytes) > 1% indicates that a LEFT SHIFT is Present. LAB L100.2620 2.0-7.7 X10 3/uL Normal Absolute Neut 6.3 LAB L100.2720 0.83-4.51 X10 3/ul Normal Absolute Lymph 1.85 Performed By: #### L100.0100 #### [facility] [address] [place], [place], [address] RUBELLA IGG Collected: 11/02/2017 Status: F Source: [place] 3:05 PM [facility] REPOSITORY TYPE CODE TESTS RESULT OUT OF RANGE REFERENCE UNITS LAB L509.4000 IU/mL Normal Rubella IgG > 500.0 Result Comment: Antibody results Interpretation of Immune Status < 5 IU/ml Presumed Non-immune 5 - < 10 IU/ml Equivocal > or = 10 IU/ml Presumed Immune Performed By: #### L509.4000, L3890.6005 #### [facility] [address] [facility] [id number] HIV - [facility] Collected: 11/02/2017 Status: F Source: [place] 3:05 PM [facility] REPOSITORY TYPE CODE TESTS RESULT OUT OF REFERENCE UNITS RANGE LAB L3890.6005 Nonreactive Nonreactive Normal HIV - [facility] Performed By: #### L509.4000, L3890.6005 #### [facility] [place], [place], [id number] HEPATITIS B SURFACE Collected: 11/02/2017 Status: F Source: [place] AG 3:05 PM [facility] REPOSITORY TYPE CODE TESTS RESULT OUT OF RANGE REFERENCE UNITS LAB L3100.0400 Negative Normal HB Negative SURF AG Result Comment: Performed at: [facility] [id number] Adobe Layer: Matt Delatorre PhD, Phone: [phone] Performed By: #### L3100.0390 #### [facility] (refer to report for specific site) refer to report for address and phone number ABO RH BLOOD TYPE, Collected: 11/02/2017 Status: F Source: [place] PATIENT 3:05 PM [facility] REPOSITORY Order Comment: RESULT(S) PREVIOUSLY REPORTED ON MANUAL REQUISITION DURING DOWNTIME. TYPE CODE TESTS RESULT OUT OF RANGE REFERENCE UNITS LAB B10.0800 B Normal BLOOD POSITIVE TYPE GEL Performed By: #### B10.0010 #### [facility] [place], [place], [id number] CT/NG [facility] BY PCR Collected: 11/02/2017 Status: F Source: [place] 3:05 PM [facility] REPOSITORY Order Comment: RESULT(S) PREVIOUSLY REPORTED ON MANUAL REQUISITION DURING DOWNTIME. TYPE CODE TESTS RESULT OUT OF RANGE REFERENCE UNITS LAB L8200.2100 Negative Normal Chlam Negative Trac PCR LAB L8200.2200 Negative Normal NG by Negative PCR Performed By: #### L8200.2000 #### [facility] [facility] [address] RAPID PLASMIN REAGIN Collected: 11/02/2017 Status: F Source: [place] (RPR) 3:05 PM [facility] REPOSITORY TYPE CODE TESTS RESULT OUT OF REFERENCE UNITS RANGE LAB L700.5000 NONREACTIVE NONREACTIVE Normal RPR Performed By: #### L700.5000 #### [place] [facility] [address] [place], [address] DRAFTSPERSON OFFICE VISIT Observed: 10/06/2017 Status: F Source: [place] REPORT 12:47 PM [facility] REPOSITORY [facility] [address] [place] [address] OFFICE VISIT Date of Service: 10/06/17 MR#: [id number] Acct: [id number] Name: KATHI MCFARLAND Rep #: [id number] : 1995 Provider: JACQUELINE Danielson Age/Sex: 22/F Location: [facility] Status: Signed Intake Vital Signs10/06/17 Height 5 ft 7 in 10/06/17 Weight: 171 lb 4 oz 10/06/17 Body Mass Index (BMI) 26.8 10/06/17 Blood Pressure 112/72 Intake Visit Reasons: LMP 08/13/17 Gem Cutter Required: No Is patient in pain?: No Allergies No Known Allergies Allergy (Verified 10/06/17 09:07) Medications Ferrous Sulfate [Ferrous Sulfate] 325 mg PO DAILY 07/29/14 [History Confirmed 10/06/17] Vits [Prenatabs FA ] 1 tab PO DAILY 07/29/14 [History Confirmed 10/06/17] Last Menstral Period: 08/08/17 Zika: Zika virus screening: Negative : No PFSH PFSH Family History Grandmother Diabetes Social History Smoking Status: Never smoker alcohol intake: never substance use type: does not use caffeine: Yes what type of physical activity do you participate in: walking frequency: 1-2 times per week seatbelt use: always do you feel safe at home: Yes additional social history: - Colin- Diesel Maintenance Technician 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 DatName GA/WeeksOutcome Route [facility] LgAnesthesDel LocaProviderFOB e ht en th ia tn 07/31/14Averie 42 live birNSVD 8 lbs [address] [facility] [address] Nicola pretty - ful oz cos l term HPI LMP 08/13/17: Details: KATHI MCFARLAND is a 22 year old who presents for New OB visit. OB Visit Referred By Referred by: friends CONNIE Calculator Estimated Delivery Date 05/15/18 Based on LMP (certain) 08/08/17 Current WG 8w 3d Number 1 Comments: CONNIE consistent with LMP. FHT 170s Specific Issue/Plans flu vaccine: no minichart given: [] tdap vaccine: [] rhogam: [] LARC form signed: [] labor support person: [] pain management: [] cut cord/dad catch: [] : [] PP control planned: [] special requests: [] Initial Weight: Not Recorded Date Weight BP Urine PrFHR FuHt Pres MoCTX DilationFetal StVisit NoProviderComments E ot v te GA G Effac lucose ed Menstrual History Last Menstral Period: 08/08/17 Reported LMP: definite Normal amount/duration: Yes hCG+: 09/14/17 Antepartum Record Genetic Screening: Congenital Heart Defect: Other, Neural Tube Defect: Other, Hemoglobinopathy Or Carrier: Other, Cystic Fibrosis: Other, Chromosome Abnormality: Other, Mitesh-Sachs: Other, Hemophilia: Other, Intellectual Disability/Autism: Other, Recurrent Loss/Stillbirth: Other, Other Structural Defect: Other, Other Genetic Disease: Other, Maternal Metabolic Disorder: Other Infection History: Live with someone with TB or Exposed to TB: No, Patient or Partner has history of Genital Herpes: No, Rash or Viral illness since last mentrual period: No, Prior GBS-Infected child: No, History of STD: No, HIV Infection: No, History of Hepatitis: No, Recent travel outside of [place]: No, Concern for Hep exposure: No, Varicella immune: Yes (vaccine) Medical History Medical History: Negative: Diabetes, Hypertension, Heart disease, Auto-immune disorder, Kidney disease/UTI, Neurologic/epilepsy, Psychiatric, Depression/ depression, Hepatitis/liver disease, Varicosities/phlebitis, Thyroid dysfunction, Trauma/domestic violence, History of blood transfusions, D (Rh) Sensitized, Pulmonary (e.g.,TB,Asthma), Seasonal allergies, Drug/latex allergies/reactions, Breast, Votator Machine Operator surgery, Operations/hospitalizations, Anesthetic complications, History of abnormal pap, Uterine anomaly/rosa, Infertility, Anti-retroviral treatment, Relevant family history, Other ACOG First Trimester First Trimester: Desire for ROS Const Reports as per HPI Card Denies chest pain, Denies shortness of breath Resp Denies shortness of breath GI Denies change in stools Denies difficulty urinating, Denies abnormal vaginal bleeding, Denies vaginal odor, Denies vaginal itching, Denies vaginal discharge Exam Const General: cooperative, healthy appearing, well developed Nutritional Appearance: average body habitus, well nourished Orientation: oriented x3 Neck Neck: normal visual inspection Neck mass: No Thyroid: thyroid normal Chest Chest palpation AND inspection: normal inspection of the chest Breast inspection: normal inspection of the breasts, normal inspection of the axillae Resp Effort AND Inspection: normal respiratory effort GI Inspection: normal to inspection Palpation: soft, nontender, no masses External Female Exam: normal external appearance, normal appearance of the urethra Urethra: normal appearance of the urethra Speculum Exam - Vagina: normal appearance of the vagina, normal vaginal discharge Speculum Exam - Cervix: normal appearance of the cervix, closed cervix, other (thin prep pap with reflex HPV, GCC collected) Bimanual Exam- Vagina AND Uterus: normal bimanual exam, uterine shape normal, uterine size normal (10 weeks) Bimanual Exam- Adnexa, other: normal adnexae, no adnexal masses, adnexae non-tender Skin General: no rashes or lesions noted, turgor normal Assessment AND Plan Problems 1. Encounter for supervision of other normal in first trimester Z34. G 06/30 CONNIE: 05/15/18 PC; Antionette. Spouse Colin. Plan Patient oriented to practice and discussed care expectations and screenings. ACOG book offered to patient. labs and 19-20 week anatomy ultrasound ordered Genetic screening offered to patient and patient chose: undecided Initial dating US Dr. Buck Orders Orders: Coding Level of Care Code Off vis,est,level 4 Diagnoses Encounter for supervision of other normal in first trimester Z34.81 Normal : other normal 10/06/17 1247 <Electronically signed by Elizabet BALDWIN> Date Elizabet Danielson ARTIFICIAL CHERRY MAKER-C Cosigner Signature: Date (if applicable) CC: CT/NG [facility] BY PCR Collected: 10/06/2017 Status: F Source: SHAILESH 9:45 AM [facility] REPOSITORY TYPE CODE TESTS RESULT OUT OF RANGE REFERENCE UNITS LAB L8200.2100 Negative High Chlam POSITIVE Trac PCR LAB L8200.2200 Negative Normal NG by Negative PCR Performed By: #### L8200.2000 #### [facility] [address] [place], [place], [address] Observed: 10/06/2017 Status: F Source: SHAILESH CULTURE, URINE 9:45 AM [facility] REPOSITORY Urine Culture Culture exhibits no growth. Performed By: #### M100.0650 #### [facility] [address] [place], [address] PAP I-G W/RFX Collected: 10/06/2017 Status: F Source: SHAILESH HRHPV-APTIMA 9:45 AM [facility] REPOSITORY Order Comment: CYTOLOGY INFORMATION: - CLINICAL INFORMATION: HYSTERECTOMY - DATE LMP/MENOPAUSE: LMP - COLLECTION VIAL: Thin Prep Vial - VARIETY SAW OPERATOR SOURCE: CERVICAL - COLLECTION TECHNIQUE: BRUSH/SPATULA Specimen Comment: [id number] Specimen Comment: No. of containers..01 ThinPrep Vial TYPE CODE TESTS RESULT OUT OF RANGE REFERENCE UNITS LAB L7400.0800 . Normal DIAGN Comment Result Comment: NEGATIVE FOR INTRAEPITHELIAL LESION AND MALIGNANCY. LAB L7400.0900 . Normal ADEQ Comment Result Comment: Satisfactory for evaluation. Endocervical and/or squamous metaplastic cells (endocervical component) are present. LAB L7400.1400 . Normal PERFORM Comment Result Comment: Irvin Kirby, Retail Client Solutions Consultant (ASCP) LAB L7400.2483 . Normal TEST METHOD Comment Result Comment: This liquid based ThinPrep(R) pap test was screened with the use of an image guided system. LAB L7400.2600 . Normal . COMM LAB L7400.2700 . Normal PAPSMR Comment Result Comment: The Pap smear is a screening test designed to aid in the detection of premalignant and malignant conditions of the uterine cervix. It is not a diagnostic procedure and should not be used as the sole means of detecting cervical cancer. Both false-positive and false-negative reports do occur. LAB L7400.2800 . Normal HPV RFLX Comment Result Comment: The HPV DNA reflex criteria were not met with this specimen result therefore, no HPV testing was performed. Performed at: [facility] [id number] Adobe Layer: Shahana Saenz MD, Phone: [phone] Performed By: #### L7400.0353 #### [facility] (refer to report for specific site) refer to report for address and phone number ALLERGIES ALLERGIES DATE TYPE / CODE NAME / CODE REACTION SEVERITY SOURCE 05/16/2018 Drug No Known Unknown Shailesh [facility] Allergy/4160 Allergies/F00 Hospital 82339(SNOMED 9504435(RXNOR Repository CT) M) ENCOUNTERS ENCOUNTERS ADMIT/DISCHARGE ACCOUNT ADMITTING ENCOUNTER LOCATION SOURCE NUMBER CLASS 05/16/2018 [id number] [place] Encounter [facility] ing:WPRoom: Repository MX244Rvi: 1 05/16/2018 [id number] [place] Ambulatory BMSBuilding:B [place] 5 [place] MS.CF.[facility] Repository 05/15/2018/ [id number] Ambulatory BMSBuilding:B [place] 8 5 [facility] Repository 05/09/2018/ [id number] Ambulatory BMSBuilding:B [place] 8 3 [facility] Repository 05/02/2018/ [id number] Ambulatory BMSBuilding:B [place] 8 9 [facility] Repository 04/26/2018 [id number] Ambulatory [place] 0 [facility] ing:LABSPEC Repository 04/26/2018/ [id number] Ambulatory BMSBuilding:B [place] 8 3 [facility] Repository 04/18/2018 [id number] Ambulatory [place] 6 [facility] Hospital ing:PAVLAB Repository 04/18/2018/ [id number] Ambulatory BMSBuilding:B [place] 8 5 [facility] Repository 04/04/2018/ [id number] Ambulatory BMSBuilding:B [place] 8 1 [facility] Repository 03/21/2018/ [id number] Ambulatory BMSBuilding:B [place] 8 8 [facility] Repository 03/07/2018/ [id number] Ambulatory BMSBuilding:B [place] 8 5 [facility] Repository 02/21/2018 [id number] Ambulatory [place] 5 [facility] Hospital ing:LAB Repository 02/21/2018/ [id number] Ambulatory BMSBuilding:B [place] 8 4 [facility] Repository 01/23/2018/ [id number] Ambulatory BMSBuilding:B [place] 8 2 [facility] Repository 12/28/2017 [id number] Ambulatory [place] Shailesh 9 [facility] Hospital ing:OPUS Repository 12/26/2017/ [id number] Ambulatory BMSBuilding:B [place] 8 2 [facility] Repository 11/29/2017 [id number] Ambulatory [place] 3 [facility] Hospital ing:LAB Repository 11/29/2017/ [id number] Ambulatory BMSBuilding:B [place] 8 5 [facility] Repository 11/02/2017 [id number] Ambulatory [place] 7 [facility] Hospital ing:LAB Repository 11/02/2017/ [id number] Ambulatory BMSBuilding:B [place] 8 4 [facility] Repository 10/06/2017 [id number] Ambulatory [place] Sh[place]esh 0 [facility] Hospital ing:OPUS Repository 10/06/2017/ [id number] Ambulatory BMSBuilding:B [place] 8 8 [facility] Repository PAYERS PAYERS ENCOUNTER GUARANTOR 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 Number: Effective Repository Date:2018-05-16 05/16/2018 KATHI Huerta Primary COLIN [place] [id number] S Insurance:AULTCAREPol [facility]: [facility] icy Number: [id number], [id number] [place]ository [place] [address]Wwf: e Date:9156-69-53YE [address] [place] [address] () [phone]: 05/16/2018 Secondary NOT GIVENUNK [place] Insurance:SELF PAY [facility] Number: Effective Repository Date:2018-05-16 05/15/2018 KATHI Huerta Primary Colin [place] [id number] S Insurance:AULTCAREPol [place]: [facility] icy Number: [id number], [id number] [place]ository [place] [address]Ldj: e Date:0263-76-59NR [address] [place] [address] () [phone]: 05/15/2018 Secondary NOT GIVENUNK [place] Insurance:SELF PAY [facility] Number: Effective Repository Date:2018-05-15 05/09/2018 KATHI Huerta Primary Colin Sh[place] [id number] S Insurance:AULTCAREPol [facility] Community [facility]IN [address] icy Number: [id number], [id number] [place]ository [place] [address]Kij: e Date:1023-51-24NW [address] [place] [address] () [phone]: 05/09/2018 Secondary NOT GIVENUNK [place] Insurance:SELF PAY [facility] Number: Effective Repository Date:2018-05-09 05/02/2018 KATHI R Primary Colin Sh[place] [id number] S Insurance:[facility] Center[facility]: Community [address]IN [address] icy Number: [id number], [id number] [place]ository [place] [address]Ggl: e Date:0952-12-14NM [address] [place] [address] () [phone]: 05/02/2018 Secondary NOT GIVENUNK [place] Insurance:SELF PAY [facility] Number: Effective Repository Date:2018-05-02 04/26/2018 KATHI R Primary Colin Sh[place] [id number] S Insurance:EL INDIOCARESt. Helens Hospital and Health CenterB: Community [address] icy Number: [id number], [id number] [place]ository [place] [address]Odc: e Date:9034-85-27VD [address] [place] [address] () [address]YN: 04/26/2018 Secondary NOT GIVENUNK [place] Insurance:SELF PAY [facility] Number: Effective Repository Date:2018-04-26 04/26/2018 KATHI R Primary Colin Sh[place] [id number] S Insurance:EL INDIOCARESt. Hel[facility] Hospital and Health CenterB: Community [address] icy Number: [id number], [id number] Repository [place] [address]Xjv: e Date:8771-26-78RI [address] [place] [address] () [address]AV: 04/26/2018 Secondary NOT GIVENUNK [place] Insurance:SELF PAY [facility] Number: Effective Repository Date:2018-04-26 04/18/2018 KATHI Huerta Primary Colin [place] [id number] S Insurance:AULTCAREPol [place]OB: Community [address] icy Number: [id number], [id number] [place]ository [place] [address]Vsx: e Date:1331-46-02SG [address] [place] [address] () [phone]: 04/18/2018 Secondary NOT GIVENUNK [place] Insurance:SELF PAY [facility] Number: Effective Repository Date:2018-04-18 04/18/2018 KATHI Huerta Primary Colin [place] [id number] S Insurance:AULTCAREPol [facility] ST[facility] icy Number: [id number], [id number] Repository [place] [address]Bky: e Date:6516-25-76OY [address] [place] [address] () [address]PA: 04/18/2018 Secondary NOT GIVENUNK [place] Insurance:SELF PAY [facility] Number: Effective Repository Date:2018-04-18 04/04/2018 KATHI Huerta Primary Colin [place] [id number] S Insurance:AULTCAREPol [facility]: Community [address] icy Number: [id number], [id number] Repository [place] [address]Yis: e Date:9507-87-34FP [address] [place] [address] () [address]DV: 04/04/2018 Secondary NOT GIVENUNK [place] Insurance:SELF PAY [facility] Number: Effective Repository Date:2018-04-04 03/21/2018 KATHI Huerta Primary Colin [place] [id number] S Insurance:AULTCAREPol [facility]: [facility] [address] icy Number: [id number], [id number] [place]ository [place] [address]Qci: e Date:6929-55-61HZ [address] [place] [address] () [address]SC: 03/21/2018 Secondary NOT GIVENUNK [place] Insurance:SELF PAY [facility] Number: Effective Repository Date:2018-03-21 03/07/2018 KATHI R Primary Colin [place] [id number] S Insurance:AULTCAREPol [place]OB: Community [address] icy Number: [id number], [id number] [place]ository [place] [address]Uzk: e Date:0725-15-16TU [address] [place] [address] () [address]FO: 03/07/2018 Secondary NOT GIVENUNK [place] Insurance:SELF PAY [facility] Number: Effective Repository Date:2018-03-07 02/21/2018 KATHI R Primary Colin Sh[place] [id number] S Insurance:AULTCAREPol [place]OB: Community [address] icy Number: [id number], [id number] [place]ository [place] [address]Rul: e Date:1661-39-82NX [address] [place] [address] () [address]SQ: 02/21/2018 Secondary NOT GIVENUNK [place] Insurance:SELF PAY [facility] Number: Effective Repository Date:2018-02-21 02/21/2018 KATHI R Primary Colin [place] [id number] S Insurance:AULTCAREPol [place]OB: Community [address] icy Number: [id number], [place] [id number] Repository [address]Ngz: (330) e Date:0041-21-68CZ [phone] (HP) [address] [place] [address]OD: 02/21/2018 Secondary NOT GIVENUNK [place] Insurance:SELF PAY [facility] Number: Effective Repository Date:2018-02-21 01/23/2018 KATHI Huerta Primary Colin Sh[place] [id number] S Insurance:AULTCAREPol [facility] Community [address] icy Number: [id number], [place] [id number] Repository [address]Yys: (735) e Date:1395-70-72RK 2839 (HP) [address] [place] [address]HJ: 01/23/2018 Secondary NOT GIVENUNK [place] Insurance:SELF PAY [facility] Number: Effective Repository Date:2018-01-23 12/28/2017 KATHI Huerta Primary Colin Sh[place] [id number] S Insurance:AULTCAREPol [facility]: [facility] [address] icy Number: [id number], [place] [id number] Repository [address]Yzl: (391) e Date:9688-21-43PM 8326 (HP) [address] [place] [address]QI: 12/28/2017 Secondary NOT GIVENUNK [place] Insurance:SELF PAY [facility] Number: Effective Repository Date:2017-11-29 12/26/2017 KATHI Huerta Primary Colin Sh[place] [id number] S Insurance:AULTCAREPol [facility]: [facility] [address] icy Number: [id number], [place] [id number] Repository [address]Rco: (330) e Date:0551-74-59WU 3345 () [address] [place] [phone]: 12/26/2017 Secondary NOT GIVENUNK [place] Insurance:SELF PAY [facility] Number: Effective Repository Date:2017-12-26 11/29/2017 KATHI Huerta Primary Colin [place] [id number] S Insurance:AULTCAREPol [facility]: [facility] [address] icy Number: [id number], [place] [id number] Repository [address]Pwi: (330) e Date:9828-29-59HE 249 () [address] [place] [address]EU: 11/29/2017 Secondary NOT GIVENUNK [place] Insurance:SELF PAY [facility] INS[facility]ANCENew [facility]: Effective Repository Date:2017-11-29 11/29/2017 [facility] Primary Colin [place] [id number] S Insurance:AULTCAREPol [place]OB: Community [address] icy Number: [id number], [place] [id number] Repository [address]Teu: (330) e Date:8464-40-61WP 249 () [address] [place] [phone]: 11/29/2017 Secondary NOT GIVENUNK [place] Insurance:SELF PAY [facility] Number: Effective Repository Date:2017-11-29 11/02/2017 [facility] Primary Colin Shail[place] [id number] S Insurance:AULTCAREPol [facility]: Community [address] icy Number: [id number], [place] [id number] Repository [address]Paw: (330) e Date:6922-64-08HO 249 () [address] [place] [phone]: 11/02/2017 Secondary NOT GIVENUNK [place] Insurance:SELF PAY [facility] Number: Effective Repository Date:2017-11-02 11/02/2017 [facility] Primary Colin [place] [id number] S Insurance:AULTCAREPol [facility]: Community [address] icy Number: [id number], [place] [id number] Repository [address]Hks: (330) e Date:2111-56-56XL 249 () [address] [place] [phone]: 11/02/2017 Secondary NOT GIVENUNK [place] Insurance:SELF PAY [facility] Number: Effective Repository Date:2017-11-10 10/06/2017 [facility] Primary Colin Shail[place] [id number] S [facility] centerD[facility]: Community [address] icy Number: [id number], [place] [id number] Repository [address]Uqp: (330) e Date:4057-07-27WI 4272 () [address], [place] [address]VA: 10/06/2017 Secondary NOT GIVENUNK [place] Insurance:SELF PAY [facility] Number: Effective Repository Date:2017-10-06 10/06/2017 [facility] Colin Shail[place] [id number] S Insurance[facility] HospitalB[facility] [address] icy Number: [id number], [place] [id number] Repository [address]Jhq: (330) e Date:2114-73-85JM 0869 () [address], [place] [address]YH: 10/06/2017 Secondary NOT GIVENUNK [place] Insurance:SELF PAY [facility] Number: Effective Repository Date:2017-10-06
== END ==
PROVIDERS: Referring Provider Obstetrics & Gynecology; Visit Provider Obstetrics & Gynecology
DX: Z34.80 Encounter for supervision of other normal pregnancy, unspecified trimester (principal)
CPT/HCPCS: 87491; 87591

== ENCOUNTER 2018-05-16 08:30 | Inpatient (IN) | payer OTHER, SELFPAY ==
[2018-05-15 08:46] VITALS: BMI 30.3
[2018-05-16 08:01] VITALS: BMI 30.3
[2018-05-16 08:24] LABS: ROM Internal Control Test YES-OK TO RESULT pt. (Internal QC)
[2018-05-16 08:25] LABS: ROM Patient Test POSITIVE (Negative)
[2018-05-16] MEDS: Lactated Ringers 1,000 ML 50 ML IV ×2 (09:00→10:27)
[2018-05-16 09:26] LABS: Hematocrit 33.3 % (37-47); Hemoglobin 11.6 g/dl (12.0-15.0); Mean Corp Hgb Conc 34.8 g/gl (32-36); Mean Corpuscular Hgb 31.7 pg (27.0-32.0); Mean Platelet Vol. 11.4 fl (6.2-12.0); Platelet Count 175 K/mm3 (150-450); RBC Distribution Width CV 13.3 % (11.6-14.6); RBC Distribution Width SD 42.8 fl (35.1-43.9); Red Blood Count 3.66 M/mm3 (4.2-5.4); White Blood Count 10.9 K/mm3 (4.4-11.0)
[2018-05-16 09:27] LABS: Scan Indicated on CBC? Y/N NO
[2018-05-16] MEDS: fentaNYL-bupivacaine (epidural) 100 ML BAG EPIDURAL ×2 (10:30→14:55)
[2018-05-16] MEDS: Oxytocin 30 units/NS 500 ml 30 UNITS/500 ML IV.SOLN IV (12:40)
[2018-05-16] MEDS: Oxytocin 30 units/NS 500 ml 30 UNITS/500 ML IV.SOLN 334 UNITS IV (15:30)
[2018-05-16] MEDS: Oxytocin 30 units/NS 500 ml 30 UNITS/500 ML IV.SOLN 167 UNITS IV (16:00)
--- NOTE | 2018-05-16 17:53 | HP.PCM_ITS ---
- Problem List (1) Active labor Status: Acute (2) Anemia affecting Status: Acute Qualifiers: (3) Supervision of normal , antepartum Status: Acute Qualifiers: Comment: PRR G 06/30 CONNIE: 05/15/18 girl PC; Antionette. Spouse Colin. (4) Status: Acute Qualifiers: Comment: declined genetic, carrier, and ntd screening. anatomy scan normal. History Date of Admission: 05/16/18 Final CONNIE: 05/15/18 Gestational age: 40 Weeks and 1 Days History of this : This is a 23 year-old, , at 40 weeks gestational age presents IAL with SROM clear fluid Allergies No Known Allergies Allergy (Verified 05/16/18 08:55) Home Medications: Home Medications Ferrous Sulfate 325 mg PO DAILY 07/29/14 Vits [Prenatabs FA ] 1 tab PO DAILY 07/29/14 Smoking Status: Never smoker Alcohol: None Number of Fetus(es): 1 Heart Tracins moderate variability reactive no decels cat I tracing TOCO Analysis: q 5-8 History Past Pregnancies: previous term Labs: Mom's Labs & Results 05/16/18 05/16/18 05/16/18 08:10 09:00 09:00 WBC 10.9 RBC 3.66 L Hgb 11.6 L Hct 33.3 L MCV 91.0 MCH 31.7 MCHC 34.8 RDW 13.3 RDW Differential 42.8 Plt Count 175 MPV 11.4 Vag Amniotic Fld Detect POSITIVE H Blood Type B POSITIVE Antibody Screen NEGATIVE Course Did the patient receive Yes care? Labs Blood Type: B RH: POSITIVE RPR/VDRL/Syphilis Nonreactive Rubella status Immune HbSAg Negative Date Done: 11/02/17 Chlamydia Negative Gonorrhea Negative HIV/AIDS Non-Reactive Group B Strep: Negative Current Obstetrical History Gestational Diabetes No Incompetent Cervix No Infertility No IUGR No Macrosomia No Hypertension/Pre-eclampsia No Placenta Previa/Abruption No PTL/PROM No Uterine anomaly No Oligohydramnios No Polyhydramnios No Multiple gestation No Past Medical History Asthma No Diabetes No Hypertension No Heart disease No Mitral valve prolapse No Neurologic/Seizure disorder/ No Migraines Kidney disease No Liver disease No Varicosities No Clotting disorders/Hx of DVT No Thyroid Dysfunction No Other medical diseases No Psychiatric disorders No Major trauma No Abnormal PAP smear No Sleep apnea No Mammogram in the last 2 years No Social History Marital Status: Alleged father Colin Ballesteros Smoking No Smoking Status Never smoker Expected Infant Delivery Method: Spontaneous Vaginal Review of Systems Constitutional: Denies: Fever, Malaise Eyes: Denies: Blurred vision, Vision Change HEENT: Denies: Head Aches, Visual Changes Cardiovascular: Denies: Chest Pain, Palpitations Respiratory: Denies: Cough, Shortness of Breath, Wheezing Gastrointestinal: Denies: Abdominal Pain, Diarrhea, Nausea, Vomiting Genitourinary: Denies: Dysuria, Hematuria Musculoskeletal: Denies: Joint Pain, Muscle pain Skin: Denies: Lesions, Rash Neurological: Denies: Blurred vision, Focal weakness, Headaches Psychiatric: Denies: Anxiety, Depression Endocrine: Denies: Heat/ Cold Intolerance Hematologic/ Lymphatic: Denies: Easy Bruising, Easy Bleeding Physical Exam General: Alert, Cooperative, No apparent distress HEENT: Atraumatic, Normocephalic. Negative for: Thyromegaly, Lymphadenopathy Cardiovascular: Regular rate Lungs: Normal air movement Abdomen: Soft, Non Tender, Gravid Neurological: Deep Tendon Reflexes 2+/4 and Symmetrical, Neuro grossly intact. Negative for: Clonus [employer]: Normal external genitalia. Negative for: Vulvar lesions Estimated gestational size: Appropriate for gestational size Presentation: Cephalic Assessment/Plan All Active Problems (Last Reviewed 05/15/18 @ 08:47 by Nora Arias) Active labor (Acute) Anemia affecting (Acute) Supervision of normal , antepartum (Acute) (Acute) Chlamydia infection affecting (Acute) Encounter for supervision of normal in first trimester (Resolved) This is a 23 year-old, , at 40 weeks gestational age presents IAL Patient presents IAL, plan expectant management for , pitocin PRN Pain management: plans epidural. GBS negative. Management of any complications: none I have reviewed the [facility] and made any clinically relevant updates.
--- NOTE | 2018-05-16 19:41 | PCM.OB.VAG ---
- Problem List (1) Active labor Status: Acute (2) Anemia affecting Status: Acute Qualifiers: (3) Supervision of normal , antepartum Status: Acute Qualifiers: Comment: PRR G 06/30 CONNIE: 05/15/18 girl RITA Adan. Spouse Colin. (4) Status: Acute Qualifiers: Comment: declined genetic, carrier, and ntd screening. anatomy scan normal. Vaginal Delivery Maternal Presentation: Active Labor Amniotic Membrane Rupture Type: Spontaneous at home Amniotic Fluid Description: Clear Final CONNIE: 05/15/18 Gestational age: 40 Weeks and 1 Days Date of Procedure: 05/16/18 Pre-Operative Diagnosis: ial Post-Operative Diagnosis: same Surgery/ Procedure Performed: Spontaneous Vaginal Delivery Type of Anesthesia: Epidural Description of Procedure: Patient began pushing and delivered the head in the DM presentation. The head was delivered atraumatically . The anterior and posterior shoulders delivered without complication followed by the rest of the and the was placed on the maternal abdomen. Delayed cord clamping was employed for approximately 60 seconds. Cord was clamped and cut and gentle traction was applied to the cord and the placenta delivered spontaneously immediately following it was noted to be intact with three-vessel cord. The perineum and vagina were inspected and noted to have a small first-degree perineal laceration that was repaired in the usual fashion with 3-0 Vicryl repeat. EBL was 200 cc. Patient and infant tolerated delivery well. Presentation: DM Placental Delivery Description: Spontaneous Placenta Disposition: [facility] Cord Vessel Description: 3 Vessels Cord Entanglement: None Episiotomy Description: None Laceration: Perineal Extension/lac, 1st degree Medications given after delivery: IV Pitocin Complications: None
[2018-05-16 20:30] VITALS: BP 116/66; PULSE 88; RESP 16; TEMP 36.6; O2SAT 100
[2018-05-17 00:10] VITALS: BP 112/67; PULSE 73; RESP 16; TEMP 36.3; O2SAT 99
[2018-05-17 04:30] VITALS: BP 109/65; PULSE 67; RESP 16; TEMP 37.3; O2SAT 100
[2018-05-17] MEDS: Naproxen 250 MG Tablet PO ×2 (04:41→16:00)
--- NOTE | 2018-05-17 08:18 | PCM.PN.OB ---
Patient Problems: Active and Suspected Problems (Last Reviewed 05/15/18 @ 08:47 by Nora Arias) Active labor (Acute) Subjective: No CP, SOB. Doing wel - Physical Exam General: Alert, Oriented x3 Abdomen: Soft, Non Tender, - - FF below U Vital Signs Temp Pulse Resp BP Pulse Ox 99.1 F 67 16 109/65 100 05/17/18 04:30 05/17/18 04:30 05/17/18 04:30 05/17/18 04:30 05/17/18 04:30 Oxygen Delivery Method Room Air Weight: 188 lb Body Mass Index (BMI) 30.3 Intake and Output for Last 24 Hours 05/15/18 05/16/18 05/17/18 23:59 23:59 23:59 Intake Total 3145 / 3145 Output Total 1250 / 1250 400 / 400 Balance 1895 / 1895 -400 / -400 Laboratory Tests Past 24 Hrs 05/16/18 05/16/18 05/16/18 08:10 09:00 09:00 WBC 10.9 RBC 3.66 L Hgb 11.6 L Hct 33.3 L MCV 91.0 MCH 31.7 MCHC 34.8 RDW 13.3 RDW Differential 42.8 Plt Count 175 MPV 11.4 Vag Amniotic Fld Detect POSITIVE H Blood Type B POSITIVE Antibody Screen NEGATIVE Medical Necessity - Tobacco Use Smoking Status: Never smoker Assessment/Plan All Active Problems (Last Reviewed 05/15/18 @ 08:47 by Nora Arias) Active labor (Acute) Anemia affecting (Acute) Supervision of normal , antepartum (Acute) (Acute) Chlamydia infection affecting (Acute) Encounter for supervision of normal in first trimester (Resolved) PPD#1: Routine care. .
[2018-05-17 08:30] VITALS: BP 98/55; PULSE 72; RESP 16; TEMP 36.4; O2SAT 98
[2018-05-17 10:00] VITALS: RESP 16
[2018-05-17 14:00] VITALS: BP 117/65; PULSE 84; RESP 16; TEMP 36.4; O2SAT 97
[2018-05-17 19:40] VITALS: BP 121/74; PULSE 86; RESP 17; TEMP 36.6; O2SAT 98
[2018-05-18 02:40] VITALS: BP 113/66; PULSE 77; RESP 18; TEMP 36.4; O2SAT 98
--- NOTE | 2018-05-18 07:27 | PCM.PN.OB ---
Patient Problems: Active and Suspected Problems (Last Reviewed 05/15/18 @ 08:47 by Nora Arias) Active labor (Acute) Subjective: Doing well. Denies SOB, CP. Plans home today - Physical Exam General: Alert, Oriented x3 Abdomen: Soft, Non Tender, - - FF below U Vital Signs Temp Pulse Resp BP Pulse Ox 97.6 F L 77 18 113/66 98 05/18/18 02:40 05/18/18 02:40 05/18/18 02:40 05/18/18 02:40 05/18/18 02:40 Oxygen Delivery Method Room Air Weight: 188 lb Body Mass Index (BMI) 30.3 Intake and Output for Last 24 Hours 05/16/18 05/17/18 05/18/18 23:59 23:59 23:59 Intake Total 3145 / 3145 Output Total 1250 / 1250 400 / 400 Balance 1895 / 1895 -400 / -400 Medical Necessity - Tobacco Use Smoking Status: Never smoker Assessment/Plan All Active Problems (Last Reviewed 05/15/18 @ 08:47 by Nora Arias) Active labor (Acute) Anemia affecting (Acute) Supervision of normal , antepartum (Acute) (Acute) Chlamydia infection affecting (Acute) Encounter for supervision of normal in first trimester (Resolved) PPD #2: Routine care. . Home today. Plans IUD at 6 wk pp visit
--- NOTE | 2018-05-18 07:28 | PCM.DCVAG ---
Additional Instructions: If you experience any of the following, contact your healthcare provider. Bleeding that soaks a pad every hour for 2 hours Fever 100.4 or higher Unrelieved incision or abdominal pain Swelling, redness, discharge or bleeding from your incision or episiotomy site Your incision begins to separate Problems urinating (including inability to urinate or burning while urinating). Visual changes Severe headache Flu-like symptoms Pain or redness in one of both of your breasts Pain, warmth, tenderness or swelling in your legs, especially the calf area Frequent nausea and vomiting Symptoms of depression or anxiety If you experience any of the following, call 911 or go to the nearest Emergency Room. Chest pain Problems breathing Seizure activity Partial or complete paralysis of a body part, slurred speech, weakness or drooping of the face, or a sudden inability to walk or hold your balance Allergies/Adverse Reactions: Allergies No Known Allergies Allergy (Verified 05/16/18 08:55) Medications to take at Discharge Ferrous Sulfate 325 mg PO DAILY 07/29/14 Vits [Prenatabs FA ] 1 tab PO DAILY 07/29/14 Primary Care Physician: Care Physician,No Primary [Primary Care Provider] - Test Results: Test results from this visit will be discussed in further detail at your follow-up appointment, if applicable.
--- NOTE | 2018-05-18 07:29 | DCINST_ITS ---
Additional Instructions: If you experience any of the following, contact your healthcare provider. * Bleeding that soaks a pad every hour for 2 hours * Fever 100.4 or higher * Unrelieved incision or abdominal pain * Swelling, redness, discharge or bleeding from your incision or episiotomy site * Your incision begins to separate * Problems urinating (including inability to urinate or burning while urinating). * Visual changes * Severe headache * Flu-like symptoms * Pain or redness in one of both of your breasts * Pain, warmth, tenderness or swelling in your legs, especially the calf area * Frequent nausea and vomiting * Symptoms of depression or anxiety If you experience any of the following, call 911 or go to the nearest Emergency Room. * Chest pain * Problems breathing * Seizure activity * Partial or complete paralysis of a body part, slurred speech, weakness or drooping of the face, or a sudden inability to walk or hold your balance Allergies/Adverse Reactions: Allergies No Known Allergies Allergy (Verified 05/16/18 08:55) Medications to take at Discharge Ferrous Sulfate 325 mg PO DAILY 07/29/14 Vits [Prenatabs FA ] 1 tab PO DAILY 07/29/14 Primary Care Physician: Care Physician,No Primary [Primary Care Provider] - Test Results: Test results from this visit will be discussed in further detail at your follow- up appointment, if applicable.
[2018-05-18 08:00] VITALS: BP 108/65; PULSE 77; RESP 16; TEMP 36.6
[2018-05-18] MEDS: Senna/Docusate Sodium 1 Tablet PO (08:32)
--- OUTSIDE RECORDS SUMMARY | 2018-08-17 12:40 | XMS RPT_ITS ---
:1995 Author Organization OHIP Support Name Relationship Address Phone [facility] Unavailable [address] + [address], [place] Unavailable [address] + [address] [place] [address] [facility] Unavailable [address] + [address], [place] Unavailable [address] + [address] [place] [address] [facility] Unavailable [address] + [address], [place] Unavailable [address] + [address] [place] [address] [facility] Unavailable [address] + [address], [place] Unavailable [address] + [address] [place] [address] [facility] Unavailable [address] + [address] [place] Unavailable [address] + [address] [place] [address] [facility] Unavailable [address] + [address], [place] Unavailable [address] + [address] [place] [address] [facility] Unavailable [address] + [address], [place] Unavailable [address] + [address] [place] [address] [facility] Unavailable [address] + [place] [phone] [place], [place] Unavailable [address] + [address] [place] [address] [facility] Unavailable [address] + [place] [address] [place], [place] Unavailable [address] + [address] [place] [address] [facility] Unavailable [address] + [place] [phone] [place], [place] Unavailable [address] + [address] [place] [address] [facility] Unavailable [address] + [address], [place] Unavailable [address] + [address] [place] [address] [facility] Unavailable [address] + [address], [place] Unavailable [address] + [address] [place] [address] [facility] Unavailable [address] + [address], [place] Unavailable [address] + [address] [place] [address] [facility] Unavailable [address] + [address], [place] Unavailable [address] + [address] [place] [address] [facility] Unavailable [address] + [address], [place] Unavailable [address] + [address] [place] [address] 428[address] [facility] Unavailable [address] + [place] [phone] [place], [place] Unavailable [address] + [place] [address] [facility] Unavailable [address] + [place] [phone] [place], [place] Unavailable [address] + [place] [address] [facility] Unavailable [address] + [address], [place] Unavailable [address] + [place] [address] [facility] Unavailable [address] + [address], [place] Unavailable [address] + [place] [address] [facility] Unavailable [address] + [place], [address], [place] Unavailable [address] + [place] [address] [facility] Unavailable [address] + [address], [place] Unavailable [address] + [place] [address] [facility] Unavailable [address] + [address], [place] Unavailable [address] + [place] [address] [facility] Unavailable [address] + [address], [place] Unavailable [address] + [place] [address] [facility] Unavailable [address] + [address], [place] Unavailable Unavailable + [place] [address] [facility] Unavailable X + [address], [place] Unavailable . + [place] [address] Care Team Providers Name Role Phone Indiana Buck Attending Unavailable Primay Care Physicia, No Referring Unavailable Indiana Buck Attending Unavailable Primay Care Physicia, No Referring Unavailable Indiana Buck Attending Unavailable Indiana Buck Referring Unavailable Primay Care Physicia, No Primary Care Unavailable Indiana Buck Admitting Unavailable Indiana Buck Admitting Unavailable Indiana Buck Attending Unavailable Indiana Buck Referring Unavailable Primay Care Physicia, No Primary Care Unavailable Marcanthony, Indiana Consulting Unavailable Marcanthony, Indiana Admitting Unavailable Bardwell, Elizabet Attending Unavailable Marcanthony, Indiana Referring Unavailable Primay Care Physicia, No Primary Care Unavailable Marcanthony, [place] Consulting Unavailable Marcanthony, Indiana Admitting Unavailable Erum, Elizabet Attending Unavailable Marcanthony, [place] Referring Unavailable Primay Care Physicia, No Primary Care Unavailable Marcanthony, [place] Consulting Unavailable Erum, Elizabet Attending Unavailable Primay Care Physicia, No Referring Unavailable Primay Care Physicia, No Primary Care Unavailable Bardwell, Elizabet Attending Unavailable Primay Care Physicia, No Primary Care Unavailable Erum, Elizabet Referring Unavailable Marcanthony, [place] Attending Unavailable Primay Care Physicia, No Primary Care Unavailable Bardwell, Elizabet Attending Unavailable Primay Care Physicia, No [...] Primay Care Physicia, No Primary Care Unavailable Bardwell, Elizabet Attending Unavailable Primay Care Physicia, No Referring Unavailable Erum, Elizabet Attending Unavailable Erum, Elizabet Referring Unavailable Primay Care Physicia, No Primary Care Unavailable Marcanthony, [place] Attending Unavailable Primay Care Physicia, No Referring Unavailable Erum, Elizabet Attending Unavailable Primay Care Physicia, No Referring Unavailable Marcanthony, [place] Attending Unavailable Primay Care Physicia, No Referring Unavailable Bardwell, Elizabet Attending Unavailable Primay Care Physicia, No Referring Unavailable Bardwell, Elizabet Attending Unavailable Primay Care Physicia, No Primary Care Unavailable Marcanthony, [place] Attending Unavailable Primay Care Physicia, No Referring Unavailable Marcanthony, [place] Attending Unavailable Primay Care Physicia, No Primary Care Unavailable Marcanthony, [place] Referring Unavailable Marcanthony, [place] Attending Unavailable Primay Care Physicia, No Referring Unavailable PROBLEMS PROBLEMS DATE TYPE CONDITION / CODE ATTENDING STATUS SOURCE 05/15/2018 Unknown O98.813 - Other Marcanthony, Active [place] maternal [facility] infectious and Hospital parasitic diseases Repository complicating , third trimester / O98.813(ICD-10) 05/15/2018 Unknown Z34.80 - Encounter Marcanthony, Active [place] for supervision of [facility] normal Hospital , Repository unspecified trimester / Z34.80(ICD-10) 05/15/2018 Unknown Z3A.40 - 40 weeks Marcanthony, Active [place] gestation of [facility] / Hospital Z3A.40(ICD-10) Repository 05/02/2018 Unknown Z34.81 - Encounter Marcanthony, Active [place] for supervision of [facility] normal Hospital , first Repository trimester / Z34.81(ICD-10) 05/02/2018 Unknown Z3A.38 - 38 weeks Marcanthony, Active [place] gestation of [facility] / Hospital Z3A.38(ICD-10) Repository 04/18/2018 Unknown Z34.90 - Encounter Elizabet Danielson Active [place] for supervision of [facility] normal , Hospital unspecified, Repository unspecified trimester / Z34.90(ICD-10) 04/18/2018 Unknown O99.012 - Anemia Erum, Elizabet Active [place] complicating [facility] , second Hospital trimester / Repository O99.012(ICD-10) 04/18/2018 Unknown Z3A.36 - 36 weeks Bardwell, Elizabet Active [place] gestation of [facility] / Hospital Z3A.36(ICD-10) Repository 04/04/2018 Unknown A74.9 - Chlamydial Marcanthony, Active [place] infection, [facility] unspecified / Hospital A74.9(ICD-10) Repository 04/04/2018 Unknown Z3A.34 - 34 weeks Marcanthony, Active [place] gestation of [facility] / Hospital Z3A.34(ICD-10) Repository 03/21/2018 Unknown Z23 - Encounter ErumElizabet gutierrez Active [place] for immunization / Community Z23(ICD-10) Hospital Repository 03/07/2018 Unknown O98.812 - Other Marcanthony, Active [place] maternal [facility] infectious and Hospital parasitic diseases Repository complicating , second trimester / O98.812(ICD-10) 03/07/2018 Unknown Z3A.30 - 30 weeks Heber, Active [place] gestation of [facility] / Hospital Z3A.30(ICD-10) Repository 02/21/2018 Unknown Z34.91 - Encounter Elizabet Danielson Active [place] for supervision of [facility] normal , Hospital unspecified, first Repository trimester / Z34.91(ICD-10) 02/21/2018 Unknown Z3A.28 - 28 weeks Erum, Elizabet Active [place] gestation of [facility] / Hospital Z3A.28(ICD-10) Repository 02/21/2018 Unknown O26.86 - Pruritic Bardwell, Elizabet Active [place] urticarial papules Community and plaques of Hospital (PUPPP) Repository / O26.86(ICD-10) 12/26/2017 Unknown Z3A.20 - 20 weeks Erum, Elizabet Active [place] gestation of [facility] / Hospital Z3A.20(ICD-10) Repository 10/07/2017 Unknown Z12.4 - Encounter Erum Elizabet Active [place] for screening for [facility] malignant neoplasm [facility] / Repository Z12.4(ICD-10) PROCEDURES PROCEDURES No Procedure Records FoundRESULTS RESULTS DISCHARGE INSTRUCTION Observed: 05/18/2018 Status: F Source: [place] 7:29 AM [facility] REPOSITORY [facility] Medical Records Department [address] [place] [address] Instructions for Home/Discharge Instructions 05/18/18 0728 MR#: [id number] Acct: [id number] Name: BRUNAKATHI Rep #: [id number] : 1995 23 From: Elizabet Danielson MASTER TAX ADVISOR-C PCP: Care Physician, No Primary Status: ADM IN Additional Instructions: If you experience any of the following, contact your healthcare provider. * Bleeding that soaks a pad every hour for 2 hours * Fever 100.4 or higher * Unrelieved incision or abdominal pain * Swelling, redness, discharge or bleeding from your incision or episiotomy site * Your incision begins to separate * Problems urinating (including inability to urinate or burning while urinating). * Visual changes * Severe headache * Flu-like symptoms * Pain or redness in one of both of your breasts * Pain, warmth, tenderness or swelling in your legs, especially the calf area * Frequent nausea and vomiting * Symptoms of depression or anxiety If you experience any of the following, call 911 or go to the nearest Emergency Room. * Chest pain * Problems breathing * Seizure activity * Partial or complete paralysis of a body part, slurred speech, weakness or drooping of the face, or a sudden inability to walk or hold your balance Allergies/Adverse Reactions: Allergies No Known Allergies Allergy (Verified 05/16/18 08:55) Medications to take at Discharge Ferrous Sulfate 325 mg PO DAILY 07/29/14 Vits [Prenatabs FA ] 1 tab PO DAILY 07/29/14 Primary Care Physician: Care Physician,No Primary [Primary Care Provider] - Test Results: Test results from this visit will be discussed in further detail at your follow-up appointment, if applicable. 05/18/18 0729 <Electronically signed by Elizabet BALDWIN> Date Elizabet BALDWIN CC: No Primary Care Physician OPERATIVE REPORT Observed: 05/16/2018 Status: F Source: [place] 7:43 PM [facility] REPOSITORY [facility] Medical Records Department [address] [place] [address] Operative Report 05/16/181940 MR#: [id number] Acct: [id number] Name: KATHI MCFARLAND Rep #: [id number] : 1995 23 From: Indiana Buck MD PCP: Care Physician, No Primary Status: ADM IN Y Location: DS984-2 - Problem List (1) Active labor Status: [...] the rest of the infant and the infant was placed on the maternal abdomen. Delayed [...] repeat. EBL was 200 cc. Patient and tolerated delivery well. Presentation: DM Placental Delivery [...] AND PHYSICAL Observed: 05/16/2018 Status: F Source: [place] EXAM 5:54 PM [facility] REPOSITORY [facility] Medical Records Department [address] [place] [address] History and Physical 05/16/18 1748 MR#: [id number] Acct: [id number] Name: BRUNAKATHI LAROSE Bradley Rep #: [id number] : 1995 23 From: Indiana Buck MD PCP: Care Physician, No Primary Status: ADM IN Y Location: XL854-6 - Problem List (1) Active labor Status: Acute (2) Anemia affecting Status: Acute Qualifiers: (3) Supervision of normal , antepartum Status: Acute Qualifiers: Comment: PRR G 2/1 CONNIE: 05/15/18 girl PC; Antionette. Spouse Colin. [...] Symmetrical, Neuro grossly intact. Negative for: Clonus HURRICANE TRACKER: Normal external genitalia. Negative for: Vulvar lesions [...] any complications: none I have reviewed the [facility] and made any clinically relevant updates. 05/16/18 175 <Electronically signed by Indiana Buck MD> Date Indiana Buck MD Cosigner Signature: Date (if applicable) CC: No Primary Care Physician; Indiana Buck MD Signed CBC-COMPLETE BLOOD CNT Collected: 05/16/2018 Status: F Source: [place] NO DIFF 9:00 AM [facility] REPOSITORY TYPE CODE TESTS RESULT OUT OF [...] MPV 11.4 Performed By: #### L100.0500 #### [facility] [address] [place], [place], [address] TYPE AND SCREEN Collected: 05/16/2018 Status: F Source: [place] 9:00 AM [facility] REPOSITORY Order Comment: Reason for Type AND Screen/Red Cells: ROUTINE TYPE CODE TESTS RESULT OUT OF RANGE REFERENCE UNITS LAB B10.0800 B Normal BLOOD TYPE GEL POSITIVE LAB B100.4000 Normal Antibody NEGATIVE Screen Performed By: #### B101.7450 #### [facility] [address] [place], [place], [address] (ROM) RUPTURE OF Collected: 05/16/2018 Status: F Source: [place] [facility] 8:10 AM [facility] REPOSITORY TYPE CODE TESTS RESULT OUT OF REFERENCE UNITS RANGE LAB L205.1310 Negative High ROM POSITIVE Result Comment: Amniotic fluid present indicates rupture of Membranes. RESULTS CALLED TO JAHAIRA MEDLEY 05/16/18 0824 Gardenia Mariee. REPORT READ BACK BY SAME . Performed By: #### L205.1000 #### [facility] [address] [place], [place], [address] AUTOMOBILE RACER OFFICE VISIT Observed: 05/15/2018 Status: F Source: [place] REPORT 9:36 AM [facility] REPOSITORY [facility] 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 DatName GA/WeeksOutcome Route [facility] LocaProviderFOB e ht en ia tn 07/31/14Averie 42 live birNSVD 8 lbs [address] [facility] [address] Nicola pretty - celia oz cos l term HPI 40 weeks: [...] MD Cosigner Signature: Date (if applicable) CC: AUTOMOBILE RACER OFFICE VISIT Observed: 05/09/2018 Status: F Source: [place] REPORT 10:13 AM [facility] REPOSITORY [facility] [address] [place] [address] OFFICE VISIT Date of Service: 05/09/18 MR#: [id number] Acct: [id number] Name: KATHI MCFARLAND Rep #: [id number] : 1995 Provider: Indiana Buck MD Age/Sex: 23/F Location[place] [facility] Status: Signed Intake Vital Signs05/09/18 Height 5 ft 6 in 05/09/18 Weight: 191 lb 05/09/18 Body Mass Index (BMI) 30.8 05/09/18 Blood Pressure 104/66 05/09/18 Body Mass Index (BMI) 29.0 Intake Visit Reasons: 39 weeks Chief Complaint: est ob Senior Boiler Operator Required: No Is patient in pain?: No [...] home: Yes additional social history: - Colin- Pharm Tech 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 DatName GA/WeeksOutcome Route [facility] LgAnesthesDel LocaProviderFOB e ht en ia tn 07/31/14Averie 42 live birNSVD 8 lbs [address] [facility] [address] Petersen th - ful oz cos [...] CONNIE: 05/15/18 girl NARCISA; Antionette. Spouse Colin. 3. 39 weeks gestation [...] MD Cosigner Signature: Date (if applicable) CC: AUTOMOBILE RACER OFFICE VISIT Observed: 05/02/2018 Status: F Source: [place] REPORT 9:20 AM [facility] [address] [place] [address] OFFICE VISIT Date of Service: 05/02/18 MR#: [id number] Acct: [id number] Name: KATHI MCFARLAND Bradley Rep #: [id number] : 1995 Provider: Indiana Buck MD Age/Sex: 23/F Location: [facility] Status: Signed Intake Vital Signs05/02/18 Height 5 ft 8 in 05/02/18 Weight: 191 lb 05/02/18 Body Mass Index (BMI) 29.0 05/02/18 Blood Pressure 90/54 L 05/02/18 Body Mass Index (BMI) 28.8 Intake Visit Reasons: 38 weeks Chief Complaint: est ob Senior Boiler Operator Required: No Is patient in pain?: No [...] home: Yes additional social history: - Colin- Pharm Tech 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 DatName GA/WeeksOutcome Route [facility] LgAnesthesDel LocaProviderFOB e ht en ia tn 07/31/14Averie 42 live birNSVD 8 lbs [address] [facility] [address] Petersen - ful oz cos l [...] MD Cosigner Signature: Date (if applicable) CC: AUTOMOBILE RACER OFFICE VISIT Observed: 04/26/2018 Status: F Source: [place] REPORT 12:51 PM [facility] 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 DatName GA/WeeksOutcome Route [facility] LocaProviderFOB e ht en ok tn 07/31/14Averie 42 live birNSVD 8 lbs [address] [facility] [address] Petersen - ful oz cos l [...] 04/26/2018 Status: F Source: [place] 12:00 AM [facility] REPOSITORY TYPE CODE TESTS RESULT OUT OF RANGE REFERENCE UNITS LAB L8200.2100 Negative Normal Chlam Negative Trac PCR LAB L8200.2200 Negative Normal NG by Negative PCR Performed By: #### L8200.2000 #### [facility] [address] [place], [address] CT/NG [facility] BY PCR Collected: 04/18/2018 Status: F Source: [place] 9:42 PM [facility] REPOSITORY TYPE CODE TESTS RESULT OUT OF RANGE REFERENCE UNITS LAB L8200.2100 Negative Normal Chlam Negative Trac PCR LAB L8200.2200 Negative Normal NG by Negative PCR Performed By: #### L8200.2000 #### [facility] [address] [place], [address] Observed: 04/18/2018 Status: F Source: [place] CULTURE, GROUP B 9:42 PM [facility] STREPTOC[facility]CCUS REPOSITORY ALESSANDRA Culture Group B Beta Streptococcus is not isolated. Performed By: #### M100.1800 #### [facility] [address] [place], [address] CBC W/DIFF, AUTOMATED Collected: 04/18/2018 Status: F Source: [place] 8:59 AM [facility] REPOSITORY TYPE CODE TESTS RESULT OUT OF [...] Lymph 1.60 Performed By: #### L100.0100 #### [facility] [address] [place], [address] AUTOMOBILE RACER OFFICE VISIT Observed: 04/18/2018 Status: F Source: [place] REPORT 8:51 AM [facility] REPOSITORY [facility] 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 DatName GA/WeeksOutcome Route [facility] WeigInfant GLabor LgAnesthesDel LocaProviderFOB e ht en ia tn 07/31/14Averie 42 live birNSVD 8 lbs [address] [facility] [address] Nicola pretty - ful oz cos l term HPI 36 weeks: [...] 05/15/18 girl PC; Antionette. Spouse Colin. 2. 36 weeks gestation [...] BALDWIN Cosigner Signature: Date (if applicable) CC: AUTOMOBILE RACER OFFICE VISIT Observed: 04/04/2018 Status: F Source: [place] REPORT 1:38 PM [facility] 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 DatName GA/WeeksOutcome Route [facility] LocaProviderFOB e ht en tn 07/31/14Averie 42 live birNSVD 8 lbs [address] [facility] [address] Petersen th - ful oz cos [...] MD Cosigner Signature: Date (if applicable) CC: AUTOMOBILE RACER OFFICE VISIT Observed: 03/21/2018 Status: F Source: [place] REPORT 10:08 AM [facility] 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 DatName GA/WeeksOutcome Route [facility] Yg Owens LgAnestheElel LocaProviderFOB e ht en ia tn 07/31/14Averie 42 live birNSVD 8 lbs [address] [facility] [address] Nicola pretty - ful oz cos [...] Screen: NIPT Screen: Office Meds Flucelvax Quad 0616-3315 (PF) Performing Provider: DENNY Mccauley Administered by: Mesha Seay on 03/21/18 08:58 [address] Admin Location Lot Number Expiration Date NDC Maintenance Apprentice 60 mcg IM left deltoid [id number] 11/26/18 90850-586-65 SEQIRUS Results BMSUA2 Office Urine Glucose Negative [...] weeks Orders Orders: Medications Discontinued: Flucelvax Quad 6788-4452 (PF) (flu vac qs 2018(4 yr60 mcg [...] BALDWIN Cosigner Signature: Date (if applicable) CC: AUTOMOBILE RACER OFFICE VISIT Observed: 03/07/2018 Status: F Source: [place] REPORT 9:18 AM [facility] 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 DatName GA/WeeksOutcome Route [facility] LgAnesthesDel LocaProviderFOB e ht en tn 07/31/14Averie 42 live birNSVD 8 lbs [address] [facility] [address] Nicola pretty - ful oz cos [...] Z34.81 PRR G 06/30 CONNIE: 05/15/18 girl NARCISA; Antionette. Spouse Colin. 3. 30 weeks gestation [...] of Z3A.30 Weeks of gestation: 30 weeks 03/07/18917 <Electronically signed by Indiana Buck MD> Date Indiana Buck MD Cosigner Signature: Date (if applicable) CC: CBC W/DIFF, AUTOMATED Collected: 02/21/2018 Status: F Source: [place] 9:28 AM [facility] REPOSITORY TYPE CODE TESTS RESULT OUT OF [...] 1.43 Performed By: #### L100.0100, L501.0250 #### [facility] [address] [place], [place], [address] GLUCOSE CHALLENGE GEST Collected: 02/21/2018 Status: F Source: [place] 1H 50G 9:28 AM [facility] REPOSITORY Order Comment: Comments: Draw lab at 9:28am Comments: Draw lab at 9:28am TYPE CODE TESTS RESULT OUT OF RANGE REFERENCE UNITS LAB L501.0250 70-140 mg/dL Normal GLU GEST 121 50g 1H Performed By: #### L100.0100, L501.0250 #### [facility] [address] [place], [address] AUTOMOBILE RACER OFFICE VISIT Observed: 02/21/2018 Status: F Source: [place] REPORT 8:46 AM [facility] REPOSITORY [facility] 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 DatName GA/WeeksOutcome Route [facility] LocaProviderFOB e ht en [facility] 07/31/14Averie 42 live birNSVD 8 lbs [address] [facility] [address] Petersen - ful oz cos l [...] Edit by Carmen Burr on 02/21/18 08:30 Office Urine Protein Negative Last Edit by Carmen Burr on 02/21/18 08:30 Immunizations Boostrix Tdap Performing Provider: DENNY Mccauley Administered by: Carmen Burr on 02/21/18 08:30 Dose Route Admin Location Lot Number Expiration Date NDC Maintenance Apprentice 0.5 mL IM Left Deltoid [id number] 04/22/19 [id number] SANOFI-PASTEUR VIS Given Date VIS Publication Date [...] BALDWIN Cosigner Signature: Date (if applicable) CC: AUTOMOBILE RACER OFFICE VISIT Observed: 01/23/2018 Status: F Source: [place] REPORT 12:00 PM [facility] REPOSITORY 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 DatName GA/WeeksOutcome Route [facility] LocaProviderFOB e ht en ia tn 07/31/14Averie 42 live birNSVD 8 lbs [address] [facility] [address] Nicola pretty - ful oz cos [...] ANATOMY SCAN Observed: 12/28/2017 Status: F Source: [place] 12:15 PM [facility] REPOSITORY [facility] Imaging Services [address] [place] [address] OB Anatomy Scan MR#: [id number] Acct: [id number] Name: KATHI MCFARLAND Rep #: [id number] : 1995 F 22 From: Nikita Mcallister MD PCP: Care Physician, No Primary Status: REG CLI Study: OB Anatomy Scan Date of Exam: 12/28/17 Exam# [id number] Ordering Dr: Elizabet Danielson MASTER TAX ADVISOR-C STUDY: SECOND AND THIRD TRIMESTER OBSTETRICAL ULTRASOUND [...] weeks, 5 days. CONNIE by current US: 18. Estimated weight: 402 grams, +/- 14 grams, [...] CC: JACQUELINE Danielson; No Primary Care Physician Hand Tube Winder: Signed AUTOMOBILE RACER OFFICE VISIT Observed: 12/26/2017 Status: F Source: [place] REPORT 3:40 PM [facility] [address] [place] [address] OFFICE VISIT Date of Service: 12/26/17 MR#: [id number] Acct: [id number] Name: KATHI MCFARLAND Rep #: [id number] : 1995 Provider: JACQUELINE Danielson Age/Sex: 22/F [place] [facility] [place] Status: Signed Intake Vital Signs12/26/17 Body Mass Index (BMI) 26.6 Intake Visit Reasons: 20 week ob Chief Complaint: est ob Senior Boiler Operator Required: No Is patient in pain?: No Allergies No Known Allergies Allergy (Verified 12/26/17 15:30) Medications Ferrous Sulfate [Ferrous Sulfate] 325 mg PO DAILY 07/29/14 [History Confirmed 12/26/17] Vits [Prenatabs FA ] 1 tab PO DAILY 07/29/14 [History Confirmed 12/26/17] Last Menstral Period: 08/08/17 Zika: Zika virus [...] home: Yes additional social history: - Colin- Pharm Tech 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 DatName GA/WeeksOutcome Route [facility] LocaProviderFOB e ht en ok tn 07/31/14Averie 42 live birNSVD 8 lbs [address] [facility] [address] Nicola pretty - ful oz cos [...] Office Urine Glucose Negative Last Edit by Nroa Arias on 12/26/17 15:32 Office Urine Protein Negative Last Edit by Nora Arias on 12/26/17 15:32 Assessment AND Plan Problems 1. Encounter for supervision of other normal in first trimester Z34.81 PRR G 06/30 CONNIE: 05/15/18 NARCISA; Antionette. Spouse Colin. 2. Chlamydia infection affecting [...] signed by Elizabet BALDWIN> Date Elizabet Danielson NP-C Cosigner Signature: Date (if applicable) CC: ANTIBODY SCREEN Collected: 11/29/2017 Status: F Source: [place] 2:15 PM [facility] REPOSITORY TYPE CODE TESTS RESULT OUT OF RANGE REFERENCE UNITS LAB B100.4000 Normal Antibody NEGATIVE Screen Performed By: #### B100.4000 #### [facility] [address] [place], [place], [address] AUTOMOBILE RACER OFFICE VISIT Observed: 11/29/2017 Status: F Source: [place] REPORT 2:01 PM [facility] REPOSITORY [facility] 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 DatName GA/WeeksOutcome Route [facility] LocaProviderFOB e ht en [facility] tn 07/31/14Averie 42 live birNSVD 8 lbs [address] [facility] [address] Petersen - ful oz cos l [...] Edit by Mesha Seay on 11/29/17 13:45 Office Urine Protein [...] MD Cosigner Signature: Date (if applicable) CC: DOWNTIME REPORT Observed: 11/17/2017 Status: F Source: [place] 1:15 PM [facility] REPOSITORY [facility] Medical Records Department [address] [place] [address] Downtime Report MR#: [id number] Acct: [id number] Name: KATHI MCFARLAND Rep #: [id number] : 1995 22 From: Frank Moore PCP: Care Physician, No Primary Status: REG CLI This patient was seen during an EMR downtime October 31, 2017 - November 07, 2017. This patient may have a combination of paper and electronic documentation or all paper documentation. All documentation is viewable within the e-chart portion of [employer] for each patient visit. CBC W/DIFF, AUTOMATED Collected: 11/02/2017 Status: F Source: [place] 3:05 PM [facility] REPOSITORY TYPE CODE TESTS RESULT OUT OF [...] Lymph 1.85 Performed By: #### L100.0100 #### [facility] [address] [facility]. [facility] [address] RUBELLA IGG Collected: 11/02/2017 Status: F Source: [place] 3:05 PM [facility] REPOSITORY TYPE CODE TESTS RESULT OUT OF RANGE REFERENCE UNITS LAB L509.4000 IU/mL Normal Rubella IgG > 500.0 Result Comment: Antibody results Interpretation of Immune Status < 5 IU/ml Presumed Non-immune 5 - < 10 IU/ml Equivocal > or = 10 IU/ml Presumed Immune Performed By: #### L509.4000, L3890.6005 #### [facility]. [facility] [id number] HIV - [facility] Collected: 11/02/2017 Status: F Source: [place] 3:05 PM [facility] REPOSITORY TYPE CODE TESTS RESULT OUT OF REFERENCE UNITS RANGE LAB L3890.6005 Nonreactive Nonreactive Normal HIV - [facility] Performed By: #### L509.4000, L3890.6005 #### [facility]. [facility] [id number] HEPATITIS B SURFACE Collected: 11/02/2017 Status: F Source: [place] AG 3:05 PM [facility] REPOSITORY TYPE CODE TESTS RESULT OUT OF RANGE REFERENCE UNITS LAB L3100.0400 Negative Normal HB Negative SURF AG Result Comment: Performed at: - [facility] [address] [id number] Sexual Assault Response Coordinator: Matt Delatorre PhD, Phone: [phone] Performed By: #### L3100.0390 #### [facility] (refer to report for specific site) refer to report for address and phone number ABO RH BLOOD TYPE, Collected: 11/02/2017 Status: F Source: [place] PATIENT 3:05 PM [facility] REPOSIT[facility] Order Comment: RESULT(S) PREVIOUSLY REPORTED ON MANUAL REQUISITION DURING DOWNTIME. TYPE CODE TESTS RESULT OUT OF RANGE REFERENCE UNITS LAB B10.0800 B Normal BLOOD POSITIVE TYPE GEL Performed By: #### B10.0010 #### [facility] [address] [place], [address] CT/NG [facility] BY PCR Collected: 11/02/2017 Status: F Source: [place] 3:05 PM [facility] REPOSIT[facility] Order Comment: RESULT(S) PREVIOUSLY REPORTED ON MANUAL REQUISITION DURING DOWNTIME. TYPE CODE TESTS RESULT OUT OF RANGE REFERENCE UNITS LAB L8200.2100 Negative Normal Chlam Negative Trac PCR LAB L8200.2200 Negative Normal NG by Negative PCR Performed By: #### L8200.2000 #### [facility] [address] [place], [place], [address] RAPID PLASMIN REAGIN Collected: 11/02/2017 Status: F Source: [place] (RPR) 3:05 PM [facility] REPOSITORY TYPE CODE TESTS RESULT OUT OF REFERENCE UNITS RANGE LAB L700.5000 NONREACTIVE NONREACTIVE Normal RPR Performed By: #### L700.5000 #### [facility] [address] [place], [address] AUTOMOBILE RACER OFFICE VISIT Observed: 10/06/2017 Status: F Source: [place] REPORT 12:47 PM [facility] REPOSIT[facility] 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 DatName GA/WeeksOutcome Route [facility] LocaProviderFOB e ht en [place] tn 07/31/14Averie 42 live birNSVD 8 lbs [address] [facility] [address] Petersen - ful oz cos l [...] Pulmonary (e.g.,TB,Asthma), Seasonal allergies, Drug/latex allergies/reactions, Breast, Electronics Supervisor surgery, Operations/hospitalizations, Anesthetic complications, History of abnormal [...] of other normal in first trimester Z34.81 G 06/30 CONNIE: 05/15/18 PC; Antionette. Spouse [...] signed by Elizabet BALDWIN> Date Elizabet Danielson NP-C Cosigner Signature: Date (if applicable) CC: CT/NG [facility] BY PCR Collected: 10/06/2017 Status: F Source: [place] 9:45 AM [facility] REPOSITORY TYPE CODE TESTS RESULT OUT OF RANGE REFERENCE UNITS LAB L8200.2100 Negative High Chlam POSITIVE Trac PCR LAB L8200.2200 Negative Normal NG by Negative PCR Performed By: #### L8200.2000 #### [facility] [address] [place], [place], [address] Observed: 10/06/2017 Status: F Source: [place] CULTURE, URINE 9:45 AM [facility] REPOSIT[facility] Urine Culture Culture exhibits no growth. Performed By: #### M100.0650 #### [facility] [address] [place], [place], [address] PAP I-G W/RFX Collected: 10/06/2017 Status: F Source: [place] HRHPV-APTIMA 9:45 AM [facility] REPOSIT[facility] Order Comment: CYTOLOGY INFORMATION: - CLINICAL INFORMATION: HYSTERECTOMY - DATE LMP/MENOPAUSE: LMP - COLLECTION VIAL: Thin Prep Vial - HURRICANE TRACKER SOURCE: CERVICAL - COLLECTION TECHNIQUE: BRUSH/SPATULA Specimen Comment: [id number] Specimen Comment: No. of containers..01 ThinPrep Vial TYPE CODE TESTS RESULT OUT OF RANGE REFERENCE UNITS LAB L7400.0800 . Normal DIAGN Comment Result Comment: NEGATIVE FOR INTRAEPITHELIAL LESION AND MALIGNANCY. LAB L7400.0900 . Normal ADEQ Comment Result Comment: Satisfactory for evaluation. Endocervical and/or squamous metaplastic cells (endocervical component) are present. LAB L7400.1400 . Normal PERFORM Comment Result Comment: Irvin Kirby, Publications Designer (ASCP) LAB L7400.2575 . Normal TEST METHOD Comment Result Comment: [...] no HPV testing was performed. [facility]formed at[facility] [id number] Sexual Assault Response Coordinator: Shahana Saenz MD, Phone: [phone] Performed By: #### L7400.0353 #### [facility]refer to report for specific site) refer to report for address and phone number ALLERGIES ALLERGIES DATE TYPE / CODE NAME / CODE REACTION SEVERITY SOURCE 05/16/2018 Drug No Known Unknown [place] [facility] Allergy/4160 Allergies/F00 [facility] 19333(SNOMED 7990517(RXNOR Repository CT) M) ENCOUNTERS ENCOUNTERS ADMIT/DISCHARGE ACCOUNT ADMITTING ENCOUNTER LOCATION SOURCE NUMBER CLASS 05/16/2018/ [id number] [place], Inpatient [place] Shailesh 8 7 [place] Encounter [facility] ing:WPRoom: Repository IA458Fbs: 1 05/16/2018 [id number] [place], Ambulatory BMSBuilding:B [place] 5 [place] MS.CF.[facility] Repository 05/16/2018 [id number] [place], Ambulatory BMSBuilding:B [place] 9 [place] MS.CF.[facility] Repository 05/16/2018 [id number] [place], Ambulatory BMSBuilding:B [place] 5 [place] MS.CF.[facility] Repository 05/15/2018/ [id number] Ambulatory BMSBuilding:B [place] 8 5 [place].[facility] Repository 05/09/2018/ [id number] Ambulatory BMSBuilding:B [place] 8 3 MS.[facility] Repository 05/02/2018/ [id number] Ambulatory BMSBuilding:B [place] 8 9 MS.[facility] Repository 04/26/2018 [id number] Ambulatory [place] 0 [facility] ing:LABSPEC Repository 04/26/2018/ [id number] Ambulatory BMSBuilding:B Shailesh 8 3 [place].[facility] Repository 04/18/2018 [id number] Ambulatory [place] Shailesh 6 [facility] ing:PAVLAB Repository 04/18/2018/ [id number] Ambulatory BMSBuilding:B Sh[place]esh 8 5 [place].[facility] Repository 04/04/2018/ [id number] Ambulatory BMSBuilding:B [place] 8 1 [place].[facility] Repository 03/21/2018/ [id number] Ambulatory BMSBuilding:B Sh[place]esh 8 8 [place].[facility] Repository 03/07/2018/ [id number] Ambulatory BMSBuilding:B Sh[place]esh 8 5 [facility] Repository 02/21/2018 [id number] Ambulatory [place]ailesh [place] 5 [facility] ing:LAB Repository 02/21/2018/ [id number] Ambulatory BMSBuilding:B Sh[place]esh 8 4 [place].[facility] Repository 01/23/2018/ [id number] Ambulatory BMSBuilding:B Sh[place]esh 8 2 [place].[facility] Repository 12/28/2017 [id number] Ambulatory [place] Shailesh 9 [facility] ing:OPUS Repository 12/26/2017/ [id number] Ambulatory BMSBuilding:B Shailesh 8 2 [place].[facility] Repository 11/29/2017 [id number] Ambulatory [place] 3 [facility] ing:LAB Repository 11/29/2017/ [id number] Ambulatory BMSBuilding:B Shailesh 8 5 MS.[facility] Repository 11/02/2017 [id number] Ambulatory [place]ailesh [place] 7 [facility] ing:LAB Repository 11/02/2017/ [id number] Ambulatory BMSBuilding:B [place] 8 4 MS.[facility] Repository 10/06/2017 [id number] Ambulatory Shailesh Shailesh 0 [facility] ing:OPUS Repository 10/06/2017/ [id number] Ambulatory BMSBuilding:B [place] 8 8 MS.[facility] Repository PAYERS PAYERS ENCOUNTER GUARANTOR PAYER SUBSCRIBER SOURCE 05/16/2018 KATHI Huerta Primary COLIN [place] [id number] S Insurance:[facility]: [facility] ic Number: [id number] [id number] [place]ository [place] [address]Vbw: e Date:1867-38-33TL [address] ([place]) [address]WP: 05/16/2018 Secondary NOT GIVENUNK [place] Insurance:SELF PAY [facility] Number: Effective Repository Date:2018-05-16 05/16/2018 KATHI Huerta Primary COLIN [place] [id number] S Insurance:[facility]: [facility] icy Number: [id number], [id number] Repository [place] [address]Zrd: e Date:0545-63-39FJ [address] [place] [address] () [address]WL: 05/16/2018 Secondary NOT GIVENUNK [place] Insurance:SELF PAY [facility] Number: Effective Repository Date:2018-05-16 05/16/2018 KATHI R Primary COLIN [place] [id number] S Insurance:[employer] SUMMERFIELDDOB: Community MAIN STLOT icy Number: [id number], [id number] Repository [place] [address]Nvg: e Date:8477-19-90GK [address] [place] [address] () [address]IG: 05/16/2018 Secondary NOT GIVENUNK [place] Insurance:SELF PAY [facility] Number: Effective Repository Date:2018-05-16 05/16/2018 KATHI R Primary COLIN [place] [id number] S Insurance:[employer] SUMMERFIELDDOB: Community MAIN STLOT icy Number: [id number], [id number] Repository [place] [address]Cjk: e Date:5724-98-83XZ [address] [place] [address] () [address]XB: 05/16/2018 Secondary NOT GIVENUNK [place] Insurance:SELF PAY [facility] Number: Effective Repository Date:2018-05-16 05/15/2018 KATHI R Primary Colin [place] [id number] S Insurance:[employer]AREPol [place]OB: Community MAIN STL[address] icy Number: [id number], [id number] Repository [place] [address]Xoz: e Date:6760-06-18XO [address] [place] [address] () [address]SJ: 05/15/2018 Secondary NOT GIVENUNK [place] Insurance:SELF PAY Community [facility] Number: Effective Repository Date:2018-05-15 05/09/2018 KATHI Huerta Primary Colin [place] [id number] S Insurance:[employer] [facility] clinicD[facility]: Community MAIN STL[address] icy Number: [id number], [id number] Repository [place] [address]Ixh: e Date:3381-41-04EQ [address] [place] [address] () [address]RJ: 05/09/2018 Secondary NOT GIVENUNK [place] Insurance:SELF PAY [facility] Number: Effective Repository Date:2018-05-09 05/02/2018 KATHI Huerta Primary Colin [place] [id number] S Insurance:[employer] [facility] clinic[facility]: [facility] STLOT icy Number: [id number], [id number] Repository [place] [address]Aan: e Date:0971-56-62IE [address] [place] [address] () [address]IW: 05/02/2018 Secondary NOT GIVENUNK [place] Insurance:SELF PAY [facility] Number: Effective Repository Date:2018-05-02 04/26/2018 KATHI Huerta Primary Colin [place] [id number] S Insurance:[facility] STLOT icy Number: [id number], [id number] Repository [place] [address]Xpd: e Date:1793-10-22FC [address] [place] [address] () [address]PD: 04/26/2018 Secondary NOT GIVENUNK [place] Insurance:SELF PAY [facility] Number: Effective Repository Date:2018-04-26 04/26/2018 KATHI Huerta Primary Colin [place] [id number] S Insurance:[facility]ARE[facility] STLOT icy Number: [id number], [id number] Repository [place] [address]Vcc: e Date:4532-06-25YC [address] [place] [address] () [phone]: 04/26/2018 Secondary NOT GIVENUNK [place] Insurance:SELF PAY [facility] Number: Effective Repository Date:2018-04-26 04/18/2018 KATHI Huerta Primary Colin [place] [id number] S Insurance:[employer]AREPol [place]DOB: Community MAIN STL[address] icy Number: [id number], [id number] Repository [place] [address]Gaa: e Date:0742-18-37PZ [address] [place] [address] () [address]EH: 04/18/2018 Secondary NOT GIVENUNK [place] Insurance:SELF PAY [facility] Number: Effective Repository Date:2018-04-18 04/18/2018 KATHI R Primary Colin [place] [id number] S Insurance:[facility]Pol [facility] clinicD[facility]: Community MAIN STLOT icy Number: [id number], [id number] Repository [place] [address]Ssy: e Date:8592-94-64RN [address] [place] [address] () [address]DY: 04/18/2018 Secondary NOT GIVENUNK [place] Insurance:SELF PAY [facility] Number: Effective Repository Date:2018-04-18 04/04/2018 KATHI R Primary Colin [place] [id number] S Insurance:[employer]AREPol [place]DOB: Community MAIN STLOT icy Number: [id number], [id number] Repository [place] [address]Dyu: e Date:9076-61-88DC [address] [place] [address] () [address]CK: 04/04/2018 Secondary NOT GIVENUNK [place] Insurance:SELF PAY [facility] Number: Effective Repository Date:2018-04-04 03/21/2018 KATHI Huerta Primary [place] [id number] S Insurance:[facility] [address] icy Number: [id number], [id number] [place]ository [place] [address]Oly: e Date:3359-16-55KW [address] [place] [address] () [phone]: 03/21/2018 Secondary NOT GIVENUNK [place] Insurance:SELF PAY [facility] Number: Effective Repository Date:2018-03-21 03/07/2018 KATHI Huerta Primary [place] [id number] S Insurance:[facility] Community [address] icy Number: [id number], [id number] [place]ository [place] [address]Vns: e Date:5931-84-56RK [address] [place] [address] () [phone]: 03/07/2018 Secondary NOT [place]IVENUNK [place] Insurance:SELF PAY [facility] Number: Effective Repository Date:2018-03-07 02/21/2018 KATHI Huerta Primary [place] [id number] S Insurance:[facility]TC[facility]Pol [facility] Community [address] icy Number: [id number], [id number] [place]ository [place] [address]Rzk: e Date:8155-62-28FZ [address] [place] [address] () [phone]: 02/21/2018 Secondary NOT [place]IV[place]UNK [place] Insurance:SELF PAY [facility] Number: Effective Repository Date:2018-02-21 02/21/2018 KATHI Huerta Primary [place] [id number] S Insurance:[facility]TC[facility]Pol [facility] Community [address] icy Number: [id number], [place] [id number] Repository [address]Gho: 330) e Date:2120-64-12QJ [phone] (HP) [address] [place] [address]RT: 02/21/2018 Secondary NOT [place]IVENUNK [place] Insurance:SELF PAY [facility]: Effective Repository Date:2018-02-21 01/23/2018 KATHI Huerta Primary [place] [id number] S Insurance:[facility]ULTCAREPol [facility]: [facility] [id number] icy Number: [id number], [place] [id number] Repository [address]Ugl: (330) e Date:9868-64-10JU 4188 () [address] [place] [phone]: 01/23/2018 Secondary NOT [place]IV[place]UNK [place] Insurance:SELF PAY [facility] Number: Effective Repository Date:2018-01-23 12/28/2017 KATHI Huerta Primary [place] [id number] S Insurance:[facility] [id number] icy Number: [id number], [place] [id number] Repository [address]Oyk: (596) e Date:3636-74-25MJ 6559 () [address] [place] [address]FT: 12/28/2017 Secondary NOT GIVENUNK [place] Insurance:SELF PAY [facility] Number: Effective Repository Date:2017-11-29 12/26/2017 KATHI Huerta Primary [place] [id number] S Insurance:AULTCAREPol MadillDOB: [facility] [id number] icy Number: [id number], [place] [id number] Repository [address]Jur: (903) e Date:5775-14-39XR 316 () [address] [address]PK: 12/26/2017 Secondary NOT GIVENUNK [place] Insurance:SELF PAY [facility] Number: Effective Repository Date:2017-12-26 11/29/2017 KATHI Huerta Primary [place] [id number] S Insurance:[facility]Pol [facility] Community [id number] icy Number: [id number], [place] [id number] Repository [address]Rqx: (330) e Date:5677-23-62JD 249 (HP) [address] [place] [phone]: 11/29/2017 Secondary NOT GIVENUNK [place] Insurance:SELF PAY [facility] Number: Effective Repository Date:2017-11-29 11/29/2017 [facility] Primary Colin [place] [id number] S Insurance:[facility]ULTCAREPol [facility] Community [id number] icy Number: [id number], [place] [id number] Repository [address]Ute: (330) e Date:3748-15-86PU 249 (HP) [address] [place] [phone]: 11/29/2017 Secondary NOT [place] Insurance:SELF PAY [facility] Number: Effective Repository Date:2017-11-29 11/02/2017 [facility] Primary [place] [id number] S Insurance:[facility]TCAREPol [facility] clinicD[facility] Community [id number] icy Number: [id number], [place] [id number] Repository [address]Btg: (330) e Date:8834-07-29QI 249 () [address] [place] [phone]: 11/02/2017 Secondary NOT GIVENUNK [place] Insurance:SELF PAY [facility] Number: Effective Repository Date:2017-11-02 11/02/2017 [facility] Primary Colin Shail[place] [id number] S Insurance:[facility]ULTCAREPol [facility] Community [id number] icy Number: [id number], [place] [id number] Repository [address]Por: (330) e Date:4387-11-79CI 249 (HP) [address] [place] [phone]: 11/02/2017 Secondary NOT [place]K [place] Insurance:SELF PAY [facility] Number: Effective Repository Date:2017-11-10 10/06/2017 [facility] Primary Colin [place] [id number] S Insurance:[facility]ULTCAREPol [facility]: [facility] [id number] icy Number: [id number], [place] [id number] Repository [address]Zdo: (236) e Date:0427-62-16UR 5938 () [address] [place] [phone]: 10/06/2017 Secondary NOT [place]K [place] Insurance:SELF PAY [facility] Number: Effective Repository Date:2017-10-06 10/06/2017 [facility] Primary Colin [id number] S Insurance[id number] icy Number: [id number], [place] [id number] Repository [address]Hgm: (690) e Date:3814-28-97DB 3772 () [address], [place] [address]WW: 10/06/2017 Secondary NOT GIVENUNK [place] Insurance:SELF PAY [facility] Number: Effective Repository Date:2017-10-06
== END 2018-05-18 14:00 | disposition home or self-care (01) | DRG 807 ==
LOC: WPOUT 08:33
PROVIDERS: Admitting Provider Obstetrics & Gynecology; Referring Provider Obstetrics & Gynecology; Visit Provider Obstetrics & Gynecology
DX: O48.0 Post-term pregnancy (principal); Z37.0 Single live birth; Z3A.40 40 weeks gestation of pregnancy; O70.0 First degree perineal laceration during delivery
CPT/HCPCS: 59025; 59050; 84112; 85027; 86850; 86900; 99218; J7120; G0378

== ENCOUNTER 2021-03-20 19:08 | Emergency (ER) | payer OTHER, SELFPAY ==
[2021-03-20 19:09] VITALS: BP 151/99; PULSE 109; RESP 16; TEMP 37.1; O2SAT 97; BMI 28.2
--- NOTE | 2021-03-20 19:49 | ED.VIS.DENTA ---
HPI History of Present Illness Chief Complaint: Dental Informant: patient Narrative Narrative: Patient complains of right lower jaw dental pain. She states her wisdom teeth are coming in at an angle. But the last few days she has noticed swelling tenderness of the gums and some slight odor. No fevers or chills. She feels like she is getting a little swelling of her jaw. No trauma. Nothing specifically makes it better or worse. PFSH PFSH Medical History no medical history Home Medications ferrous sulfate 325 mg PO DAILY 07/29/14 [History Last Taken 05/15/18 08:00 325 mg] vit,[id number] 1 tab PO DAILY 07/29/14 [History Last Taken 05/15/18 20:00 1 tab] naproxen 500 mg PO BID #20 tab 03/20/21 [Rx Last Taken Unknown] penicillin V potassium 500 mg PO 4X/DAY #40 tab 03/20/21 [Rx Last Taken Unknown] Allergy/AdvReac Type Severity Reaction Status Date / Time No Known Allergies Allergy Verified 05/16/18 08:55 Family History Grandmother Diabetes Surgical History no surgical history Social History Smoking Status: Never smoker alcohol intake: never substance use type: does not use caffeine: Yes what type of physical activity do you participate in: walking frequency: 1-2 times per week seatbelt use: always do you feel safe at home: Yes additional social history: - 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 ; Denies rhinorrhea or sore throat Cardiovascular Cardiovascular: Denies chest pain Respiratory/Chest Respiratory/Chest: Denies cough Gastrointestinal Gastrointestinal: Denies nausea or vomiting Musculoskeletal Musculoskeletal: Denies neck pain Integumentary Denies rash Endocrine Endocrinology: Denies polydipsia or polyuria Hematologic/Lymphatic Hematologic/Lymphatic: Denies easy bleeding or easy bruising Allergic/Immunologic Allergic/Immunologic ED: Reports mouth swelling EXAM Physical Exam Const Vital Signs: 03/20/21 19:09 Temperature 98.7 F Temperature Source Temporal Pulse Rate 109 H Respiratory Rate 16 Blood Pressure 151/99 H Blood Pressure Mean 116 Pulse Ox 97 Oxygen Delivery Method Room Air Positive well nourished and well developed General Appearance ED: well developed and NAD HEENT HEENT Narrative: Does have just a hint of some subtle fullness down near the angle of the mandible on the right. This is not the parotid gland though. TMJ is not tender. Inside the mouth does show pericoronitis in the right lower wisdom tooth. No Ludewig's angina. Voice is normal. Negative for trauma or tenderness Eyes General Eye ED: Negative for pale conjunctiva or scleral icterus Neck no lymphadenopathy, supple and no JVD General: Negative for tenderness Lymph Lymphatic: Negative for lymphadenopathy Resp normal respiratory effort Neuro Sensorium / Orientation: alert Skin no rashes or lesions noted MDM MDM MDM Narrative Medical decision making narrative: Patient will be given Naprosyn antibiotics. She should return with further swelling pain difficulty swallowing fevers or other concerns. She should follow-up with dentist. Discharge Plan Triage Chief Complaint: Dental ED Provider: Mario Alberto Emerson Dx/Rx/DC Orders Clinical Impression: Acute pericoronitis Instructions: ED Dental Pain Prescriptions: New penicillin V potassium 500 MG tablet 500 mg PO 4X/DAY Qty: 40 RF: 0 naproxen 500 MG tablet 500 mg PO BID Qty: 20 RF: 0 No Action ferrous sulfate 325 MG tablet 325 mg PO DAILY RF: 0 vit,[id number] 1 TABLET tablet 1 tab PO DAILY RF: 0 Primary Care Provider: Owen Henry Referrals: Owen Henry MD [Primary Care Provider] - Dentist,Your [STAFF PHYSICIAN] - 1 Week Disposition Disposition: Home, Self Care
[2021-03-20] MEDS: Penicillin Vk 250 MG Tablet 500 MG PO (20:03)
[2021-03-20] MEDS: Naproxen 250 MG Tablet PO (20:03)
== END 2021-03-20 20:10 | disposition home or self-care (01) ==
PROVIDERS: Emergency Provider Emergency Medicine; PCP Family Medicine
DX: K05.20 Aggressive periodontitis, unspecified (principal)
CPT/HCPCS: 99283